=== PATIENT | female | born 1980 | race Caucasian/White ===

== ENCOUNTER 2020-04-15 16:25 | Emergency (ER) | payer MEDICAID, SELFPAY ==
--- NOTE | 2020-04-15 | XR_ITS ---
EXAMINATION: XR HAND, LEFT CLINICAL INFORMATION: Symptoms left hand, heard a pop while lifting COMPARISON: None TECHNIQUE: PA, lateral, and oblique views of the left hand. FINDINGS: There is no fracture or dislocation. No destructive process. The bony mineralization is normal. The ulnar variance is neutral. The pronator quadratus fat pad appears normal. There is no focal joint narrowing or erosive changes. IMPRESSION: Unremarkable left hand.
[2020-04-15 17:02] VITALS: BP 138/74; PULSE 77; RESP 18; TEMP 37.1; O2SAT 98; BMI 36.6
--- NOTE | 2020-04-15 18:36 | ED_ITS ---
HPI - Extremity Problem General Chief complaint: Extremity Injury, Upper Stated complaint: hand inj Source: patient Mode of arrival: ambulatory Limitations: no limitations History of Present Illness HPI Narrative: Patient presents to the ED for left hand pain. Patient states she was lifting butter and heard a pop in the palm of her hand. Patient states since then having mild pain in the palm of the hand. Patient denies any decreased range of motion of fingers. Patient denies any numbness /tingling left upper extremity. Patient denies any swelling, redness, or blue discoloration of fingers. Related Data Previous Rx's Medication Instructions Recorded naproxen 500 mg PO BID PRN #20 tab 04/15/20 Allergies Allergy/AdvReac Type Severity Reaction Status Date / Time No Known Allergies Allergy Verified 04/15/20 18:24 [No Known Allergies*] Review of Systems Review of Systems: Negative for any upper extremity swelling, redness, numbness, tingling, pus discharge, bluish discoloration of fingers, fever, chil ls, chest pain, shortness of breath, headache, dizziness, abdominal pain, back pain, or any other concerning symptoms. Patient denies any trauma to part of the body. Patient states no coughing. Patient denies any pain in other extremities. [facility] Past Medical History Medical History (Updated 04/15/20 @ 18:53 by FELECIA Nguyen) Healthy adult Social History Social History Alcohol intake: never Smoked in Last 30 Days: No Use of substances other than those prescribed or required for medical reasons: No Advance Directives: No Advance Directives Information Provided: No Physical Exam Vital Signs: Vital Signs: Vital Signs Temp Pulse Resp BP Pulse Ox 04/15/20 17:02 98.7 F 77 18 138/74 98 Body Mass Index 36.6 Const: General: cooperative, healthy appearing, comfortable and no acute distress Orientation/consciousness: oriented to person, oriented to place, oriented to time and patient oriented x3 HENMT: Head: Yes normal to inspection Eyes: General: appearance normal, both eyes and all related structures Neck: Neck: Yes normal visual inspection, Yes full ROM, Yes no lymphadenopathy and Yes no meningeal signs Chest: Chest palpation & inspection: normal inspection of the chest and normal palpation of entire chest wall Resp: Effort & Inspection: normal respiratory effort and able to speak in complete sentences Cardio: Jugular venous distension: no JVD Heart sounds: S1 normal heart sound present and S2 normal heart sound present GI: Inspection: Yes normal to inspection and Yes abdominal wall ecchymosis : General: No CVA tenderness and Yes no CVA tenderness Back/Spine/Pelvis: Back: no CVA tenderness, No CVA tenderness and No back tenderness Neuro: General: oriented to person, oriented to place, oriented to time, patient oriented x3, tone normal, no meningeal signs and CN's II-XI intact bilaterally Cranial nerves: Yes CN's II-XII intact bilaterally Extrem: Other: Left upper extremity negative for any deformities, swelling, redness, blue discoloration, pus discharge, or any open wounds. Patient has complete range of motion of fingers of left hand. Negative any tendon injury. Patient has mild tenderness in middle of the palm of left hand. Negative for any redness there or swelling. Capillary refills intact. Radial pulse intact. Left upper extremity: normal to inspection Psych: Appearance: grossly normal, well kempt and not disheveled Course Reevaluation(s) Reevaluation #1: Patient x-ray negative for any fracture. Diagnosis hand sprain. Patient informed that no improvement pain she will need MRI to rule out any tear of muscle of the palm or any tendon injury. Presently physical exam does not indicate tendon injury due to patient have complete range of motion of all fingers of left hand. Time: 22:12 MDM - Extremity (Nontraumatic) MDM Narrative Medical decision making narrative: Left hand sprain. Patient placed in Bo wrap. Discharge Plan Discharge Clinical Impression: Hand sprain Patient Disposition: Home, Self-Care Instructions: Hand Sprain (ED) Additional Instructions: return to ED for any swelling, redness, blue discoloration of fingers, redness, inability to move fingers, chest pain, shortness of breath, numbness/ tingling, or any other concerning symptoms. Please follow-up with PCP. Prescriptions: New naproxen 500 mg tablet 500 mg PO BID PRN (Reason: pain) Qty: 20 RF: 0 Stand Alone Forms: Work/School Release Interventions: ED Discharge Assessment Last Done: 04/15/20 19:02 Discharge Date/Time: 04/15/20 19:05 Print Language: [place]
== END 2020-04-15 19:05 | disposition home or self-care (01) ==
PROVIDERS: Emergency Provider Physician Assistant
DX: S63.92XA Sprain of unspecified part of left wrist and hand, initial encounter (principal); X50.0XXA Overexertion from strenuous movement or load, initial encounter; Y93.89 Activity, other specified; Y92.010 Kitchen of single-family (private) house as the place of occurrence of the external cause; Y99.9 Unspecified external cause status
CPT/HCPCS: 73120; 99283; 99284

== ENCOUNTER 2020-09-24 12:46 | Outpatient (REF) | payer MEDICAID, SELFPAY ==
--- NOTE | ~2020-09-24 | US_ITS ---
EXAMINATION: ULTRASOUND OF THE PELVIS CLINICAL INFORMATION: Pelvic and perineal pain. COMPARISON: CT 517. TECHNIQUE: Transabdominal and transvaginal pelvic ultrasound. A transvaginal study was performed in addition to the transabdominal study which did not yield an adequate examination of the uterus and ovaries due to superimposed distended gas-filled loops of bowel. FINDINGS: The uterus is normal in size and appearance, measuring 7.9 x 3.9 x 4.3 cm longitudinally, anteroposteriorly and transversely. The endometrial stripe thickness is normal, measuring 0.3 cm in thickness. No focal myometrial mass is seen. The ovaries bilaterally are visualized and appear normal, with the right ovary measuring 2.3 x 2.1 x 1.9 cm and the left ovary measuring 2.5 x 2.5 x 1.5 cm. No adnexal mass or free fluid collection seen. US/US transvaginal IMPRESSION: Normal pelvic ultrasound..
--- NOTE | ~2020-09-24 | US_ITS ---
EXAMINATION: ULTRASOUND OF THE PELVIS CLINICAL INFORMATION: Pelvic and perineal pain. COMPARISON: CT 517. TECHNIQUE: Transabdominal and transvaginal pelvic ultrasound. A transvaginal study was performed in addition to the transabdominal study which did not yield an adequate examination of the uterus and ovaries due to superimposed distended gas-filled loops of bowel. FINDINGS: The uterus is normal in size and appearance, measuring 7.9 x 3.9 x 4.3 cm longitudinally, anteroposteriorly and transversely. The endometrial stripe thickness is normal, measuring 0.3 cm in thickness. No focal myometrial mass is seen. The ovaries bilaterally are visualized and appear normal, with the right ovary measuring 2.3 x 2.1 x 1.9 cm and the left ovary measuring 2.5 x 2.5 x 1.5 cm. No adnexal mass or free fluid collection seen. US/US pelvic complete IMPRESSION: Normal pelvic ultrasound..
== END 2020-09-24 12:47 | disposition home or self-care (01) ==
LOC: HO.US 12:46
PROVIDERS: Visit Provider Advanced Practice Midwife
DX: R10.2 Pelvic and perineal pain (principal)
CPT/HCPCS: 76830; 76856

== ENCOUNTER 2020-11-18 10:41 | Outpatient (REF) | payer MEDICAID, SELFPAY ==
--- NOTE | ~2020-11-18 | MM_ITS ---
EXAMINATION: MM SCREENING DIGITAL BREAST TOMOSYNTHESIS, BILATERAL CLINICAL INFORMATION: Screening. Asymptomatic. Age 40. No prior breast imaging. Family history breast cancer in maternal grandmother. The lifetime risk of breast cancer based on the Tyrer-Cuzick Model is 17%. COMPARISON: None (current study represents initial baseline exam). TECHNIQUE: Digital breast tomosynthesis is performed in both the craniocaudal and mediolateral oblique views along with computer-aided detection (CAD). Synthesized 2D images are generated from the tomosynthesis. FINDINGS: There are scattered areas of fibroglandular density (ACR BI-RADS breast composition Category b). There are scattered parenchymal densities without significant mass or architectural abnormality. The axilla and skin contours are unremarkable. Left breast has calcifications central and inner breast, both upper and lower quadrant on MLO view. Right breast shows less calcifications, loosely grouped mid upper inner quadrant. As this represents initial baseline exam, patient will be recalled for additional magnification views to fully characterize. MM/MM tomosynthesis screening BI IMPRESSION: 1. Bilateral calcifications, greater on left. 2. No significant mass or architectural abnormality. ASSESSMENT: BI-RADS 0: Incomplete - Need Additional Imaging Evaluation RECOMMENDATION: 1. Additional views of the breasts (bilateral magnification CC and bilateral magnification ML). 2. Radiology department staff will contact the patient for additional imaging. This patient's information was entered into a reminder system with a target due date for their next mammogram.
== END 2020-11-18 10:42 | disposition home or self-care (01) ==
LOC: HO.MAMMO 10:41
PROVIDERS: PCP Family Medicine; Visit Provider Family Medicine
DX: Z12.31 Encounter for screening mammogram for malignant neoplasm of breast (principal)
CPT/HCPCS: 77063; 77067

== ENCOUNTER 2020-12-02 12:14 | Outpatient (REF) | payer MEDICAID, SELFPAY ==
--- NOTE | ~2020-12-02 | MM_ITS ---
EXAMINATION: MM DIAGNOSTIC DIGITAL MAMMOGRAPHY, BILATERAL CLINICAL INFORMATION: Recall from baseline screening for bilateral calcifications, greater on the left. TC score 17%. COMPARISON: Mammography: 11/18/2020 TECHNIQUE: Digital mammography is performed in the following views: Magnification right CC and magnification right ML. Magnification left CC x2 and magnification left ML x2. FINDINGS: There are scattered areas of fibroglandular density (ACR BI-RADS breast composition Category b). Magnification views right breast demonstrate a few scattered punctate calcifications upper inner quadrant. There is no focal grouping or ductal distribution or pleomorphic types. These are considered benign. Magnification views left breast demonstrate greater number of calcifications, some in similar appearing small groups about the anterior 12:00, anterior central, and anterior lower quadrant. These are considered probably benign and will be followed again with diagnostic left mammography in 6 months. Results are discussed with the patient at time of visit. MM/MM added views BI IMPRESSION: Left: Scattered probable benign small groups of calcifications anterior breasts upper, central, and lower quadrant. Right: Scattered benign regional calcifications upper inner quadrant. ASSESSMENT: BI-RADS 3: Probably Benign RECOMMENDATION: Diagnostic left mammography in 6 months. This patient's information was entered into a reminder system with a target due date for their next mammogram.
== END 2020-12-02 12:15 | disposition home or self-care (01) ==
LOC: HO.MAMMO 12:14
PROVIDERS: Visit Provider Family Medicine
DX: R92.1 Mammographic calcification found on diagnostic imaging of breast (principal)
CPT/HCPCS: 77066

== ENCOUNTER 2021-06-03 13:24 | Outpatient (REF) | payer MEDICAID, SELFPAY ==
--- NOTE | ~2021-06-03 | MM_ITS ---
EXAMINATION: MM DIAGNOSTIC DIGITAL BREAST TOMOSYNTHESIS, LEFT CLINICAL INFORMATION: Six-month follow up left breast calcifications. The lifetime risk of breast cancer based on the Tyrer-Cuzick Model is 17.2%. COMPARISON: Mammography: 12/02/2020 and 11/18/2020. TECHNIQUE: Digital breast tomosynthesis is performed in both the craniocaudal and mediolateral oblique views along with computer-aided detection (CAD). Synthesized 2D images are generated from the tomosynthesis. Spot magnification views in craniocaudal and 90-degree mediolateral views also performed. FINDINGS: There are scattered areas of fibroglandular density (ACR BI-RADS breast composition Category b). There is essentially no change in appearance of the grouped and scattered calcifications of the left breast. Some of the calcifications are noted to change in configuration from craniocaudal to 90-degree mediolateral views with the appearance of milk of calcium within microcysts. No new abnormal dominant mass is appreciated. Results are provided to the patient at time of visit by the technologist. MM/MM tomosynthesis diagnostic LT IMPRESSION: There are no significant changes from prior study. ASSESSMENT: BI-RADS 3: Probably Benign. RECOMMENDATION: Diagnostic mammography in 6 months, bilateral. This patient's information was entered into a reminder system with a target due date for their next mammogram.
== END 2021-06-03 13:25 | disposition home or self-care (01) ==
LOC: HO.MAMMO 13:24
PROVIDERS: Visit Provider Family Medicine
DX: R92.1 Mammographic calcification found on diagnostic imaging of breast (principal)
CPT/HCPCS: 77061; 77065

== ENCOUNTER 2021-07-14 08:35 | Outpatient (REF) | payer MEDICAID, SELFPAY ==
--- NOTE | ~2021-07-14 | US_ITS ---
EXAMINATION: US RETROPERITONEAL LIMITED (RENAL ONLY) CLINICAL INFORMATION: History of kidney stones. Right-sided low back pain. COMPARISON: CT abdomen and pelvis 01/29/2017. TECHNIQUE: Real-time imaging of the kidneys. FINDINGS: RIGHT KIDNEY: 10.0 x 4.2 x 5.7 cm (SAG x AP x TRV). The kidney is normal in size, contour, and echogenicity. Renal cortical thickness is normal. No calculi or focal parenchymal lesions. No hydronephrosis. There are innumerable echogenic foci, likely vascular calcifications. LEFT KIDNEY: 10.2 x 5.0 x 4.9 cm (SAG x AP x TRV). The kidney is normal in size, contour, and echogenicity. Renal cortical thickness is normal. No calculi or focal parenchymal lesions. No hydronephrosis. There are multiple echogenic pyramids, likely microcalcifications raising a possibility of medullary sponge kidney. No caliectasis seen. US/US renal BI IMPRESSION: Bilateral multiple echogenic foci, likely small microcalcifications or vascular calcifications. Question medullary sponge kidney. No caliectasis or hydronephrosis seen.
== END 2021-07-14 08:36 | disposition home or self-care (01) ==
LOC: HO.US 08:35
PROVIDERS: PCP Nurse Practitioner Family; Visit Provider Nurse Practitioner Family
DX: N20.0 Calculus of kidney (principal)
CPT/HCPCS: 76775

== ENCOUNTER 2021-07-29 09:48 | Outpatient (REF) | payer MEDICAID, SELFPAY ==
--- NOTE | ~2021-07-29 | US_ITS ---
EXAMINATION: US PELVIS CLINICAL INFORMATION: Ovarian cyst COMPARISON: Previous pelvic ultrasound August 2020 TECHNIQUE: Ultrasound of the pelvis is performed using both transabdominal and transvaginal transducers along with Doppler. Transvaginal imaging is performed due to inadequate visualization transabdominally. FINDINGS: The uterus is anteverted and measures 8.4 x 3.6 x 4.2 cm in dimension. No focal uterine lesion is seen. Endometrial thickness is normal measuring 1.3 cm. There are nabothian cysts in the cervix. The right ovary is normal-appearing and measures 2.1 x 1.4 x 1.6 cm. The left ovary is normal-appearing and measures 3.6 x 1.6 x 2.9 cm. There is no fluid in the pelvis. US/US pelvic and transvaginal IMPRESSION: Normal pelvic ultrasound.
== END 2021-07-29 09:49 | disposition home or self-care (01) ==
LOC: HO.US 09:48
PROVIDERS: PCP Nurse Practitioner Family; Visit Provider Nurse Practitioner Family
DX: L68.0 Hirsutism (principal); N83.209 Unspecified ovarian cyst, unspecified side
CPT/HCPCS: 76830; 76856

== ENCOUNTER 2021-10-01 01:05 | Emergency (ER) | payer MEDICAID, SELFPAY ==
--- NOTE | ~2021-10-01 | CT_ITS ---
EXAMINATION: CT ABDOMEN AND PELVIS WITH CONTRAST CLINICAL INFORMATION: Right lower quadrant pain COMPARISON: 01/29/2017 TECHNIQUE: Multidetector volumetric images were obtained from the superior aspect of the liver through the pubic symphysis following administration 85 mL of Omnipaque 350 intravenous contrast. Sagittal and coronal reformatted images were obtained on the technologist's workstation. Oral contrast: No This CT examination was performed using dose optimization techniques as appropriate, variously including the following: *Automated exposure control *Adjustment of mA and/or kV according to patient size (this includes techniques or standardized protocols for targeted exams where dose is matched to indication/reason for exam; i.e. extremities or head) *Use of iterative reconstruction technique DLP: 693 mGy-cm FINDINGS: LUNG BASES: The visualized lung bases are unremarkable. LIVER, GALLBLADDER, AND BILIARY TREE: Liver is mildly enlarged and demonstrates hypoattenuation suspicious for steatosis. No intrahepatic biliary ductal dilatation. Redemonstrated peripheral calcification in the right lobe. Patient is status post cholecystectomy. PANCREAS: Unremarkable. SPLEEN: Unremarkable. ADRENAL GLANDS: Unremarkable. KIDNEYS AND URETERS: Bilateral nephrograms are symmetric. No hydronephrosis or obstructing calculus. A 4 mm calculus is noted in the lower left kidney. BLADDER: Minimally distended and grossly unremarkable. GASTROINTESTINAL TRACT: Assessment for wall thickening in some segments of the colon is limited due to luminal collapse, though no significant pericolonic stranding is seen to strongly suggest a colitis. No evidence of bowel obstruction. The appendix is unremarkable. No free fluid or free air is seen. ABDOMINAL WALL: No significant hernia is appreciated. LYMPH NODES: Normal. VASCULAR: Unremarkable. PELVIC VISCERA: Unremarkable. OSSEOUS STRUCTURES: Unremarkable. CT/CT abdomen pelvis w con IMPRESSION: No acute findings identified in the abdomen/pelvis. Mild hepatomegaly with steatosis. Fleischner guidelines were followed.
[2021-10-01 01:07] VITALS: BP 136/84; PULSE 85; RESP 16; TEMP 36.3; O2SAT 99; BMI 38.0
--- NOTE | 2021-10-01 01:21 | ED_ITS ---
HPI - Abdominal Pain General Chief Complaint: Abdominal Pain Stated Complaint: lower R side stomach/back pain Time Seen by Provider: 10/01/21 01:21 Source: patient Mode of arrival: ambulatory Limitations: no limitations History of Present Illness MD elicited complaint: abdominal pain Pertinent past history: kidney stones Onset (ago): hour(s) (11pm yesterday ) Pain Consistency: constant Location: RLQ Severity: severe Quality: stabbing Radiation: back Migration to: no migration Exacerbating factors: movement Relieving factors: nothing Associated symptoms: nausea Related Data Home Medications Medication Instructions Recorded Confirmed buspirone 5 mg tablet 1 tab PO BID 10/01/21 10/01/21 hydroxyzine HCl 10 mg tablet 1 - 2 tab PO BID PRN 10/01/21 10/01/21 omeprazole 40 mg capsule,delayed 1 cap PO BEDTIME 10/01/21 10/01/21 release spironolactone 100 mg tablet 1 tab PO DAILY 10/01/21 10/01/21 Previous Rx's Medication Instructions Recorded naproxen 500 mg tablet 500 mg PO BID PRN #20 tab 04/15/20 amoxicillin 875 mg-potassium 1 tab PO BID #14 tab 10/01/21 clavulanate 125 mg tablet ondansetron 4 mg disintegrating 4 mg PO Q8H PRN #20 tab 10/01/21 tablet Allergies Allergy/AdvReac Type Severity Reaction Status Date / Time No Known Allergies Allergy Verified 04/15/20 18:24 [No Known Allergies*] Review of Systems Review of Systems Constitutional : No Weight loss, No Fever, No Chills ENT/Mouth : No sore throat, No Rhinorrhea Eyes: No Swelling, No Redness Cardiovascular : No Chest Pain, No SOB, NoEdema Respiratory : No Cough, No Sputum, No Wheezing Gastrointestinal : Positive Nausea, no Vomiting, no Diarrhea, positive abdominal Pain, No Hematochezia, No Melena Genitourinary : No Dysuria, No Urinary Frequency, No Hematuria, No Urgency Musculoskeletal : No joint pain, No Myalgias, No Joint Swelling Skin : No Skin Lesions, No rash Neuro : No Weakness, No Numbness, No Dizziness, No Headache Psych : No Anxiety/Panic, No Depression Heme/Lymph: No Bruising, No Lymphadenopathy Endocrine : No Polyuria, No Polydipsia All other systems reviewed and are negative. [facility] Past Medical History Attestation statement: The following information was validated with the patient. Medical History (Updated 10/01/21 @ 02:53 by Aimee Rodriguez DO) Healthy adult Surgical History (Updated 10/01/21 @ 01:49 by Aimee Rodriguez DO) S/P cholecystectomy Social History Social History Alcohol intake: never Advance Directives: No Advance Directives Information Provided: No Patient : No Physical Exam ED Vital Signs: Vital Signs - 24 hr 10/01/21 01:07 10/01/21 01:32 10/01/21 02:53 Temperature 97.4 F Pulse Rate 85 76 71 Respiratory Rate 16 16 16 Blood Pressure 136/84 117/62 Pulse Oximetry 99 98 99 BMI result Body Mass Index 38.0 Appearance: Alert. Oriented X3. No acute distress. Eyes: Pupils equal, round and reactive to light. ENT: Pharynx normal. Neck: Normal inspection. Neck supple. CVS: Normal heart rate and rhythm. Pulses normal. Respiratory: No respiratory distress. Breath sounds normal. Abdomen: Soft and moderate ttp in RLQ no rebound Skin: Skin warm and dry. Normal skin color. Normal skin turgor. Extremities: No lower extremity edema. No calf ttp Neuro: Oriented X 3. No motor deficit. No sensory deficit. Course Course Course Narrative: CT scan negative - WBC count 16, has RLQ pain will repeat WBC count in a couple of hours and reassess. repeat WBC lower, VS stable, abdomen soft and benign possibly early appendicitis clinically discussed starting on oral antibiotics in case this is early appendicitis, patient agrees will return for any concerns MDM - Abdominal Pain MDM Narrative Medical decision making narrative: 41 yo female no sig PMH hx of cholecystectomy here with c/o RLQ pain and some nausea at this time will need labs, UA, IVF, IV toradol. CT scan to evaluate for renal colic/appendicitis. Dispo per results and findings. Differential Diagnosis Differential diagnosis: Likely abdominal pain, acute appendicitis, calculus of kidney, ovarian cyst and renal colic Lab Data Result diagrams: 10/01/21 05:07 10/01/21 01:17 Labs: Lab Results 10/01/21 10/01/21 10/01/21 Range/Units 01:17 01:17 01:17 WBC 16.3 H (4.8-10.8) X10*3/uL RBC 4.49 (4.20-5.50) X10*6/uL Hgb 12.9 (12.0-16.0) g/dl Hct 40.2 (37.0-47.0) % MCV 89.5 (80.0-98.0) fL MCH 28.7 (27.0-33.0) pg MCHC 32.1 (31.0-35.0) g/dl RDW 13.6 (11.0-16.0) % Plt Count 299 (160-400) X10*3/uL MPV 9.4 (9.4-12.3) fL Immature Gran % (Auto) 0.6 H (0.0-0.4) % Neut % (Auto) 74.3 H (45-73) % Lymph % (Auto) 18.2 L (20-40) % [place] % (Auto) 5.7 (2-11) % Eos % (Auto) 0.9 (0-4) % Baso % (Auto) 0.3 (0-2) % Lymph # (Auto) 3.0 (1.2-4.9) X10*3/uL [place] # (Auto) 0.9 (0.1-1.2) X10*3/uL Eos # (Auto) 0.1 (0.0-0.4) X10*3/uL Baso # (Auto) 0.1 (0.0-0.2) X10*3/uL Abs Immat Gran (auto) 0.10 H (0.00-0.03) X10*3/uL Absolute Neuts (auto) 12.1 H (2.0-8.3) x10*3/uL Absolute Nucleated RBC 0.000 (0.0-0.012) X10*3/uL Nucleated RBC % (auto) 0.0 (0.0-0.2) /100WBC Sodium 137 (135-145) mmol/L Potassium 3.8 (3.3-5.1) mmol/L Chloride 101 (96-108) mmol/L Carbon Dioxide 27 (22-29) mmol/L Anion Gap 13 (12-20) BUN 9 (9-16) mg/dL Creatinine 0.77 (0.5-1.4) mg/dL Estim Creat Clear Calc 101.8 Estimated GFR > 60 Random Glucose 126 H (60-115) mg/dL Calcium 9.1 (8.4-10.2) mg/dL Total Bilirubin 0.3 (0.0-1.0) mg/dL Direct Bilirubin < 0.2 (0.0-0.5) mg/dL AST 17 (5-31) U/L ALT 21 (0-31) U/L Alkaline Phosphatase 96 (39-117) U/L Total Protein 7.6 (6.5-8.0) g/dL Albumin 4.3 (3.5-5.0) g/dL Lipase 79 H (8-78) U/L Urine Color YELLOW Urine Appearance HAZY Urine pH 6.0 (5.0-8.0) Ur Specific [place] >= 1.030 H (1.005-1.025) Urine Protein TRACE (NEG-TRACE) MG/DL Urine Glucose (UA) NEG (NEG) MG/DL Urine Ketones 5 (NEG) MG/DL Urine Blood 1+ H (NEG) Urine Nitrite NEG (NEG) Ur Leukocyte Esterase NEG (NEG) Urine RBC 0-2 (0) /HPF Urine WBC 1-4 (0-4) /HPF Ur Squamous Epith Cells 3+ /LPF Urine Bacteria 2+ /LPF Urine Mucus 3+ /LPF Urine Test (NEGATIVE) COVID-19 (ENEDELIA) (Negative) COVID-19 Clin Com 10/01/21 10/01/21 10/01/21 Range/Units 01:17 01:50 05:07 WBC 13.3 H (4.8-10.8) X10*3/uL RBC 4.05 L (4.20-5.50) X10*6/uL Hgb 11.7 L (12.0-16.0) g/dl Hct 36.0 L (37.0-47.0) % MCV 88.9 (80.0-98.0) fL MCH 28.9 (27.0-33.0) pg MCHC 32.5 (31.0-35.0) g/dl RDW 13.6 (11.0-16.0) % Plt Count 256 (160-400) X10*3/uL MPV 9.5 (9.4-12.3) fL Immature Gran % (Auto) 0.5 H (0.0-0.4) % Neut % (Auto) 72.8 (45-73) % Lymph % (Auto) 20.1 (20-40) % [place] % (Auto) 5.4 (2-11) % Eos % (Auto) 0.9 (0-4) % Baso % (Auto) 0.3 (0-2) % Lymph # (Auto) 2.7 (1.2-4.9) X10*3/uL [place] # (Auto) 0.7 (0.1-1.2) X10*3/uL Eos # (Auto) 0.1 (0.0-0.4) X10*3/uL Baso # (Auto) 0.0 (0.0-0.2) X10*3/uL Abs Immat Gran (auto) 0.06 H (0.00-0.03) X10*3/uL Absolute Neuts (auto) 9.7 H (2.0-8.3) x10*3/uL Absolute Nucleated RBC 0.000 (0.0-0.012) X10*3/uL Nucleated RBC % (auto) 0.0 (0.0-0.2) /100WBC Sodium (135-145) mmol/L Potassium (3.3-5.1) mmol/L Chloride (96-108) mmol/L Carbon Dioxide (22-29) mmol/L Anion Gap (12-20) BUN (9-16) mg/dL Creatinine (0.5-1.4) mg/dL Estim Creat Clear Calc Estimated GFR Random Glucose (60-115) mg/dL Calcium (8.4-10.2) mg/dL Total Bilirubin (0.0-1.0) mg/dL Direct Bilirubin (0.0-0.5) mg/dL AST (5-31) U/L ALT (0-31) U/L Alkaline Phosphatase (39-117) U/L Total Protein (6.5-8.0) g/dL Albumin (3.5-5.0) g/dL Lipase (8-78) U/L Urine Color Urine Appearance Urine pH (5.0-8.0) Ur Specific [place] (1.005-1.025) Urine Protein (NEG-TRACE) MG/DL Urine Glucose (UA) (NEG) MG/DL Urine Ketones (NEG) MG/DL Urine Blood (NEG) Urine Nitrite (NEG) Ur Leukocyte Esterase (NEG) Urine RBC (0) /HPF Urine WBC (0-4) /HPF Ur Squamous Epith Cells /LPF Urine Bacteria /LPF Urine Mucus /LPF Urine Test NEGATIVE (NEGATIVE) COVID-19 (ENEDELIA) Negative (Negative) COVID-19 Clin Com See Note Discharge Plan Discharge Clinical Impression: Abdominal pain Qualifiers: Abdominal location: right lower quadrant Qualified Code(s): R10.31 - Right lower quadrant pain Leukocytosis Qualifiers: Leukocytosis type: unspecified Qualified Code(s): D72.829 - Elevated white blood cell count, unspecified Patient Disposition: Home, Self-Care Instructions: Abdominal Pain (ED) Additional Instructions: return to ED for any worsening symptoms or concerns repeat blood test show WBC count is going down your CT scan shows no acute inflammation of your appendix but clinically you have pain there and an elevation in your cells that fight infection in case this is early appendicitis will start on antibiotics please come back if you have fev ers, vomiting, worsening pain Prescriptions: New ondansetron 4 mg tablet,disintegrating 4 mg PO Q8H PRN (Reason: nausea and vomiting) Qty: 20 0RF amoxicillin-pot clavulanate 875-125 mg tablet 1 tab PO BID Qty: 14 0RF No Action naproxen 500 mg tablet 500 mg PO BID PRN (Reason: pain) Qty: 20 0RF buspirone 5 mg tablet 1 tab PO BID 0RF spironolactone 100 mg tablet 1 tab PO DAILY 0RF omeprazole 40 mg capsule,delayed release(DR/EC) 1 cap PO BEDTIME 0RF hydroxyzine HCl 10 mg tablet 1 - 2 tab PO BID PRN (Reason: anxiety) 0RF Stand Alone Forms: Work/School Release
[2021-10-01 01:23] LABS: Basophils Absolute Auto 0.1 X10*3/uL (0.0-0.2); Basophils Percent Auto 0.3 % (0-2); Eosinophils Absolute Auto 0.1 X10*3/uL (0.0-0.4); Eosinophils Percent Auto 0.9 % (0-4); Hematocrit 40.2 % (37.0-47.0); Hemoglobin 12.9 g/dl (12.0-16.0); Imm Gran Pct Auto 0.6 % (0.0-0.4); Lymphocytes Percent Auto 18.2 % (20-40); MANUAL DIFF FLAG NO; Mean Corpuscular HGB Conc 32.1 g/dl (31.0-35.0); Mean Corpuscular Hemoglobin 28.7 pg (27.0-33.0); Mean Corpuscular Volume 89.5 fL (80.0-98.0); Mean Platelet Volume 9.4 fL (9.4-12.3); Monocytes Absolute Auto 0.9 X10*3/uL (0.1-1.2); Monocytes Percent Auto 5.7 % (2-11); Neutrophils Absolute Auto 12.1 x10*3/uL (2.0-8.3); Neutrophils Percent Auto 74.3 % (45-73); Platelet Count 299 X10*3/uL (160-400); Red Blood Count 4.49 X10*6/uL (4.20-5.50); Red Cell Distribution Width 13.6 % (11.0-16.0); White Blood Count 16.3 X10*3/uL (4.8-10.8)
[2021-10-01 01:25] LABS: Appearance Urine HAZY; Color Urine YELLOW; Glucose Urine UA NEG (NEG); Leukocyte Esterase Urine NEG (NEG); Nitrite Urine NEG (NEG); Specific Gravity - Urine >= 1.030 (1.005-1.025); UACC Culture Trigger NO; Urine Blood 1+ (NEG); Urine Ketones 5 MG/DL (NEG); Urine Protein TRACE MG/DL (NEG-TRACE)
[2021-10-01 01:26] LABS: UPreg QC Valid YES; Urine Pregnancy NEGATIVE (NEGATIVE)
[2021-10-01 01:31] LABS: Bacteria Urine 2+ /LPF; Mucus Urine 3+ /LPF; RBC Urine 0-2 /HPF (0); Squamous Epithelial Cell Urine 3+ /LPF
[2021-10-01 01:32] VITALS: PULSE 76; RESP 16; O2SAT 98
[2021-10-01 01:54] LABS: Alanine Aminotransferase 21 U/L (0-31); Albumin Level 4.3 g/dL (3.5-5.0); Alkaline Phosphatase 96 U/L (39-117); Anion Gap 13 (12-20); Aspartate Amino Transferase 17 U/L (5-31); Bilirubin Direct < 0.2 mg/dL (0.0-0.5); Bilirubin Total 0.3 mg/dL (0.0-1.0); Blood Urea Nitrogen 9 mg/dL (9-16); Calcium 9.1 mg/dL (8.4-10.2); Carbon Dioxide 27 mmol/L (22-29); Chloride 101 mmol/L (96-108); Creatinine Clr Calc Pharmacy 101.8; Estimated Glomerular Filt Rate > 60; Glucose Random 126 mg/dL (60-115); Lipase 79 U/L (8-78); Potassium 3.8 mmol/L (3.3-5.1); Sodium 137 mmol/L (135-145); Total Protein 7.6 g/dL (6.5-8.0)
[2021-10-01] MEDS: iohexoL 350 MG/ML 100 ML INFUS..BTL 85 ML IV (02:10)
[2021-10-01 02:14] LABS: COVID-19 Test Negative (Negative); IDNOW Serial# 16C4AD1C
[2021-10-01] MEDS: ondansetron HCL 4 MG/2 ML VIAL IVPUSH (02:22)
[2021-10-01] MEDS: Ketorolac Tromethamine 30 MG/ML VIAL IVPUSH (02:22)
[2021-10-01] MEDS: 0.9 % Sodium Chloride 1,000 ML 999 ML IV (02:22)
[2021-10-01 02:53] VITALS: BP 117/62; PULSE 71; RESP 16; O2SAT 99
[2021-10-01 05:11] LABS: MANUAL DIFF FLAG NO
[2021-10-01 05:12] LABS: Basophils Percent Auto 0.3 % (0-2); Eosinophils Absolute Auto 0.1 X10*3/uL (0.0-0.4); Eosinophils Percent Auto 0.9 % (0-4); Hemoglobin 11.7 g/dl (12.0-16.0); Imm Gran Abs Auto 0.06 X10*3/uL (0.00-0.03); Imm Gran Pct Auto 0.5 % (0.0-0.4); Lymphocytes Absolute Auto 2.7 X10*3/uL (1.2-4.9); Lymphocytes Percent Auto 20.1 % (20-40); Mean Corpuscular HGB Conc 32.5 g/dl (31.0-35.0); Mean Corpuscular Hemoglobin 28.9 pg (27.0-33.0); Mean Corpuscular Volume 88.9 fL (80.0-98.0); Mean Platelet Volume 9.5 fL (9.4-12.3); Monocytes Absolute Auto 0.7 X10*3/uL (0.1-1.2); Monocytes Percent Auto 5.4 % (2-11); Neutrophils Absolute Auto 9.7 x10*3/uL (2.0-8.3); Neutrophils Percent Auto 72.8 % (45-73); Platelet Count 256 X10*3/uL (160-400); Red Blood Count 4.05 X10*6/uL (4.20-5.50); Red Cell Distribution Width 13.6 % (11.0-16.0); White Blood Count 13.3 X10*3/uL (4.8-10.8)
== END 2021-10-01 05:52 | disposition home or self-care (01) ==
PROVIDERS: Emergency Provider Emergency Medicine; PCP Nurse Practitioner Family
DX: R10.31 Right lower quadrant pain (principal); D72.829 Elevated white blood cell count, unspecified; Z20.822 Contact with and (suspected) exposure to COVID-19
CPT/HCPCS: 36415; 74177; 80048; 80076; 81001; 81025; 83690; 85025; 87635; 96361; 96374; 96375; 99284; 99285; J1885; J2405; Q9967

== ENCOUNTER 2021-12-02 13:34 | Outpatient (REF) | payer MEDICAID, SELFPAY ==
--- NOTE | ~2021-12-02 | MM_ITS ---
EXAMINATION: MM DIAGNOSTIC DIGITAL BREAST TOMOSYNTHESIS, BILATERAL CLINICAL INFORMATION: Six-month follow-up bilateral calcifications. The lifetime risk of breast cancer based on the Tyrer-Cuzick Model is 16%. COMPARISON: Mammography: June 03, 2021 and studies dating back to November 18, 2020 TECHNIQUE: Digital breast tomosynthesis is performed in both the craniocaudal and mediolateral oblique views along with computer-aided detection (CAD). Synthesized 2D images are generated from the tomosynthesis. Additional bilateral spot magnification views in craniocaudal and 90 degree mediolateral views performed. FINDINGS: The breasts are heterogeneously dense, which may obscure small masses (ACR BI-RADS breast composition Category c). There are no new significant masses, abnormal calcifications, or other abnormalities. There is stability of bilateral groupings of calcifications. Results are provided to the patient at time of visit by the technologist. MM/MM tomosynthesis diagnostic BI IMPRESSION: There are no significant changes from prior study. ASSESSMENT: BI-RADS 3: Probably Benign RECOMMENDATION: Diagnostic mammography at time of next annual exam, due in 12 months. This patient's information was entered into a reminder system with a target due date for their next mammogram.
== END 2021-12-02 13:35 | disposition home or self-care (01) ==
LOC: HO.MAMMO 13:34
PROVIDERS: PCP Nurse Practitioner Family; Visit Provider Family Medicine
DX: R92.1 Mammographic calcification found on diagnostic imaging of breast (principal)
CPT/HCPCS: 77062; 77066

== ENCOUNTER 2023-06-16 13:46 | Outpatient (REF) | payer MEDICAID, SELFPAY ==
--- NOTE | ~2023-06-16 | MM_ITS ---
EXAMINATION: MM DIAGNOSTIC DIGITAL BREAST TOMOSYNTHESIS, BILATERAL CLINICAL INFORMATION: 6 month Follow-up bilateral breast calcifications (followed since 12/02/2020), and complaining of global left breast pain. 43-year-old female. COMPARISON: Mammography: 12/02/2021, 06/03/2021, 12/02/2020, 11/18/2020. TECHNIQUE: Digital breast tomosynthesis is performed in both the craniocaudal and mediolateral oblique views along with computer-aided detection (CAD). Synthesized 2D images are generated from the tomosynthesis. In addition to standard views, spot 2-D magnification views of both breasts in the CC and ML projections were performed. FINDINGS: The breasts are heterogeneously dense, which may obscure small masses (ACR BI-RADS breast composition Category c). There are numerous bilateral loosely grouped calcifications in both breasts, the majority of which layer on the 90 degrees mediolateral view, diagnostic for milk of calcium. These appear stable from 12/02/2020, and are benign. No aggressive changes. There are no suspicious masses, suspicious grouped calcifications, or areas of architectural distortion in either breast. The somewhat nodular parenchymal pattern is stable from prior exams. MM/MM tomosynthesis diagnostic BI IMPRESSION: There are no significant changes from prior study. Benign findings. No findings suspicious for malignancy. Recommend the patient resume routine annual screening. ASSESSMENT: BI-RADS BI-RADS 2 - Benign Findings RECOMMENDATION: 1 year F/U Results were provided to the patient at time of visit by the technologist. This patient's information was entered into a reminder system with a target due date for their next mammogram.
== END 2023-06-16 13:47 | disposition home or self-care (01) ==
LOC: HO.MAMMO 13:46
PROVIDERS: PCP Registered Nurse; Visit Provider Registered Nurse
DX: R92.8 Other abnormal and inconclusive findings on diagnostic imaging of breast (principal)
CPT/HCPCS: 77062; 77066

== ENCOUNTER → 2023-06-16 14:00 | Outpatient (BNV) | payer MEDICAID, SELFPAY | PROVIDERS: PCP Registered Nurse; Visit Provider Radiology Diagnostic Radiology | DX: R92.0 Mammographic microcalcification found on diagnostic imaging of breast (principal) | CPT/HCPCS: 77062; 77066 ==

== ENCOUNTER 2023-08-04 10:43 | Outpatient (REF) | payer MEDICAID, SELFPAY ==
[2023-08-04 12:20] LABS: MANUAL DIFF FLAG NO
[2023-08-04 13:32] LABS: Basophils Percent Auto 0.5 % (0-2); Eosinophils Absolute Auto 0.3 X10*3/uL (0.0-0.4); Eosinophils Percent Auto 4.7 % (0-4); Hematocrit 39.4 % (37.0-47.0); Hemoglobin 12.8 g/dl (12.0-16.0); Imm Gran Abs Auto 0.03 X10*3/uL (0.00-0.03); Imm Gran Pct Auto 0.5 % (0.0-0.4); Lymphocytes Absolute Auto 1.7 X10*3/uL (1.2-4.9); Lymphocytes Percent Auto 27.5 % (20-40); Mean Corpuscular HGB Conc 32.5 g/dl (31.0-35.0); Mean Corpuscular Hemoglobin 28.4 pg (27.0-33.0); Mean Corpuscular Volume 87.6 fL (80.0-98.0); Mean Platelet Volume 9.8 fL (9.4-12.3); Monocytes Absolute Auto 0.7 X10*3/uL (0.1-1.2); Monocytes Percent Auto 11.2 % (2-11); Neutrophils Absolute Auto 3.4 x10*3/uL (2.0-8.3); Neutrophils Percent Auto 55.6 % (45-73); Platelet Count 268 X10*3/uL (160-400); Red Cell Distribution Width 13.6 % (11.0-16.0); White Blood Count 6.1 X10*3/uL (4.8-10.8)
[2023-08-04 14:02] LABS: Alanine Aminotransferase 36 U/L (0-31); Albumin Level 4.1 g/dL (3.5-5.0); Alkaline Phosphatase 80 U/L (39-117); Anion Gap 11 (12-20); Aspartate Amino Transferase 25 U/L (5-31); Bilirubin Total 0.3 mg/dL (0.0-1.0); Blood Urea Nitrogen 8 mg/dL (9-16); Calcium 8.9 mg/dL (8.4-10.2); Carbon Dioxide 28 mmol/L (22-29); Chloride 103 mmol/L (96-108); Estimated Glomerular Filt Rate > 60; Glucose Random 87 mg/dL (60-115); Potassium 3.6 mmol/L (3.3-5.1); Sodium 138 mmol/L (135-145); Total Protein 7.6 g/dL (6.5-8.0)
== END 2023-08-04 10:44 | disposition home or self-care (01) ==
LOC: HO.LAB 10:43
PROVIDERS: PCP Registered Nurse; Referring Provider Registered Nurse; Visit Provider Nurse Practitioner
DX: R13.10 Dysphagia, unspecified (principal); R10.10 Upper abdominal pain, unspecified; K91.5 Postcholecystectomy syndrome
CPT/HCPCS: 36415; 80053; 84443; 85025; 99212

== ENCOUNTER 2023-08-04 10:43 | Outpatient (AMB) | payer MEDICAID, SELFPAY ==
--- NOTE | 2023-08-04 11:11 | MHC.OFFVIS ---
Intake Vital Signs 08/04/23 11:12 Height 5 ft 2 in Weight 207 lb 10.807 oz BMI 38.0 BP 127/76 Blood Pressure Location Lt brachial Position Sitting Pulse 70 Intake Visit Reasons: Dysphagia Intake Note: Nilam presents to in office visit today as a new patient for dysphagia. CC: Patient c/o really bad acid reflux she states that she wakes up from her sleep chocking d/t acid reflux that also comes out of her nose. She reports symptoms for more than a year. She states that she chokes with foods and they get stuck in her throat. She also has noticed that when she talks a lot her throat feels dry and she has to cough. Also, PT c/o sharp stabbing epigastric pain sometimes, and some constipation. 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 She is referred by [facility]. PMX LAURA Obesity Hypertension High cholesterol Migraines Bipolar disorder Impaired fasting glucose Nephrolithiasis Female stress incontinence/cystocele * SURGICAL HISTORY Cholecystectomy Bilateral tubal ligation-Hawkins Bladder sling * ALLERGIES: NKDA * imo.im LABS: None in our system since 2021 TODAY'S VISIT The problems developed over the past year. She says that certain foods that she eats seems to get stuck at the sternal notch. She has had to give self Heimlich at times. No trouble with liquids. She has had 2 episodes of sharp, twisting pain in the low gastric area just above the umbilicus that lasted about 60 seconds. No other abd pain. She also has severe GERD, it especially wakes her up when sleeping. She will have acid brash that comes straight out of my nose. She eats a LOT of spicy foods, but recently stopped this. There were no new medicines at the beginning of this, she was recently given topamax and phentermine for wt loss but has not started taking this. No diet changes. No illness. She has a maternal uncle for GERD. She has gained significant wt recently her BMI going from 36 to 38. She feels that her neck will choke her if she raised her arms above her head, has 2 sisters with thyroid disease. She is s/p cholecystectomy. she used to have post prandial diarrhea with greasy foods, but for the past 3 weeks she has been feeling constipated. She will have soft sticky stools with incomplete evacuation for 3-4 days, then a large BM with watery stools. We discuss raising the HOB on blocks for now. Start qd cholestyramine and continue pantoprazole. 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 This is likely causing bile gastritis and bile GERD. ROV 3 weeks and after EGD/ barium swallow (on if possible). [facility] Medical History (Updated 08/04/23 @ 11:45 by SASHA Mace) Eroded bladder suspension mesh Healthy adult Surgical History History of bilateral tubal ligation S/P cholecystectomy Family History (Updated 08/04/23 @ 11:25 by GEMMA Hernandez) Maternal Grandmother Breast cancer Paternal Aunt Breast cancer Social History (Updated 08/04/23 @ 11:26 by GEMMA Hernandez) Alcohol intake: never Patient Tobacco Use Status: Never used Tobacco Review of Systems Const Denies fatigue, Denies fever(s), Denies night sweats, Denies poor appetite, Reports weight gain and Denies weight loss ENT Reports Normal hearing present, Denies dental pain, Denies dysphagia, Denies hearing loss, Denies mouth pain, Denies odynophagia, Denies throat swelling, Denies tongue swelling and Reports other (Dentition adequate) Card Reports no additional complaints Resp Reports no additional complaints GI Details: Denies abdominal pain, Reports belching, Denies melena, Reports bloating, Denies hematochezia, Denies constipation, Denies GI cramping, Denies dysphagia, Denies excessive flatus, Denies early satiety, Reports heartburn, Denies diarrhea, Reports loose stools, Denies nausea, Denies odynophagia, Denies vomiting and Denies hematemesis Skin/Breast Denies pruritus, Denies lesions, Denies rash and Denies jaundice Neuro Reports Normal hearing present and Denies Abnormal speech present Endo Denies fatigue Aller/Immun Denies throat swelling and Denies tongue swelling Physical Exam Vital Signs: Last Vital Signs Pulse 70 08/04/23 11:12 BP 127/76 08/04/23 11:12 BMI result Body Mass Index 38.0 Const General: cooperative, no acute distress, well developed and well groomed Nutritional Appearance: well nourished and obese Orientation/consciousness: oriented to person, oriented to place and oriented to time Limitations: No language barrier HEENT Head: Yes normocephalic and Yes atraumatic Eyes General: appearance normal, both eyes and all related structures Pupils: Equal, round and reactive pupils present Neck Neck: Yes normal visual inspection and Yes no lymphadenopathy Thyroid: Thyroid normal Resp Effort & Inspection: normal respiratory effort and able to speak in complete sentences Auscultation: clear to auscultation bilaterally Cardio Rate: regular rate Rhythm: regular rhythm Heart sounds: Normal, physiologic split S2 sound present Peripheral pulses: radial pulses present and posterior tibial pulses present GI Inspection: No distended, Yes Abdominal panniculus present and Yes obesity Palpation (GI): Soft to palpation, nontender, no guarding, not rigid and No hepatosplenomegaly present Percussion: Yes normal to percussion Auscultation: normal bowel sounds Rectal Exam - Female: deferred Skin General skin exam: no rashes or lesions noted, turgor normal, skin not dry, no jaundice, No spider nevi and no striae Rashes: no rashes Nails: normal Neuro General: oriented to person, oriented to place and oriented to time Cranial nerves: Yes Equal, round and reactive pupils present and Yes Normal hearing present Speech: No Abnormal speech present Extrem General: Yes normal to inspection, No clubbing, No cyanosis and No edema Psych Appearance: grossly normal and well kempt Mental Status: mental status grossly normal Speech and movement: Normal speech and movement present Affect: normal affect Attitude: cooperative Thought process: Normal thought process present and not confabulating Thought content: Normal thought content present Insight: Limited insight present (Psych) Judgement: Limited judgement present (Psych) Assessment & Plan Assessment & Plan (1) Dysphagia: Code(s): R13.10 - Dysphagia, unspecified (2) Upper abdominal pain: Code(s): R10.10 - Upper abdominal pain, unspecified (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 She says that certain foods that she eats seems to get stuck at the sternal notch. She has had to give self Heimlich at times. No trouble with liquids. She has had 2 episodes of sharp, twisting pain in the low gastric area just above the umbilicus that lasted about 60 seconds. No other abd pain. She also has severe GERD, it especially wakes her up when sleeping. She will have acid brash that comes straight out of my nose. She eats a LOT of spicy foods, but recently stopped this. There were no new medicines at the beginning of this, she was recently given topamax and phentermine for wt loss but has not started taking this. No diet changes. No illness. She has a maternal uncle for GERD. She has gained significant wt recently her BMI going from 36 to 38. She feels that her neck will choke her if she raised her arms above her head, has 2 sisters with thyroid disease. She is s/p cholecystectomy. she used to have post prandial diarrhea with greasy foods, but for the past 3 weeks she has been feeling constipated. She will have soft sticky stools with incomplete evacuation for 3-4 days, then a large BM with watery stools. We discuss raising the HOB on blocks for now. Start qd cholestyramine and continue pantoprazole. 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 This is likely causing bile gastritis and bile GERD. ROV 3 weeks and after EGD/ barium swallow (on if possible). Orders: Orders FL barium swallow Today K91.5 - Postcholecystectomy syndrome, R10.10 - Upper abdominal pain, unspecified, R13.10 - Dysphagia, unspecified Complete Blood Count Auto Diff Today R10.10 - Upper abdominal pain, unspecified TSH reflex Free T4 Today R10.10 - Upper abdominal pain, unspecified EGD with Alarcon - GI Use Only Today K91.5 - Postcholecystectomy syndrome, R10.10 - Upper abdominal pain, unspecified, R13.10 - Dysphagia, unspecified Comprehensive Met. Panel Today R10.10 - Upper abdominal pain, unspecified H pylori Ag Stool Today R10.10 - Upper abdominal pain, unspecified Medications: New cholestyramine (with sugar) 4 gram administer w/meal; avoid other meds within 1hr before or 4-6hr after dose 4 grams PO DAILY 60 ea 3RF K91.5 - Postcholecystectomy syndrome Coding Level of Care Code New Pt Level 3 (42703) Diagnoses Dysphagia R13.10 Upper abdominal pain R10.10 Post-cholecystectomy syndrome K91.5
[2023-08-04 11:12] VITALS: BP 127/76; PULSE 70; BMI 38.0
== END 2023-08-04 11:56 | disposition home or self-care (01) ==
PROVIDERS: PCP Registered Nurse; Referring Provider Registered Nurse; Visit Provider Nurse Practitioner
DX: R13.10 Dysphagia, unspecified (principal); R10.10 Upper abdominal pain, unspecified; K91.5 Postcholecystectomy syndrome
CPT/HCPCS: 99203

== ENCOUNTER 2023-08-29 11:13 | Outpatient (REF) | payer MEDICAID, SELFPAY | END 2023-08-29 11:14 | disposition home or self-care (01) | LOC: HO.LNP 11:13 | PROVIDERS: Visit Provider Nurse Practitioner | DX: R10.10 Upper abdominal pain, unspecified (principal) | CPT/HCPCS: 87338 ==

== ENCOUNTER 2023-10-13 07:18 | Day surgery (SDC) | payer MEDICAID, SELFPAY ==
[2023-10-13 08:00] VITALS: BP 143/88; PULSE 76; RESP 18; TEMP 36.6; O2SAT 98; BMI 39.5
--- NOTE | 2023-10-13 08:20 | P.CONAN_ITS ---
[facility] Active Problems Active Problems: All Active Problems (Updated 08/04/23 @ 11:45 by SASHA Mace) Post-cholecystectomy syndrome (Acute) Upper abdominal pain (Acute) Dysphagia (Acute) Cystocele with prolapse (Acute) Female stress incontinence (Acute) Nephrolithiasis (Acute) Impaired fasting glucose (Acute) Bipolar disorder (Acute) Migraines (Acute) High cholesterol (Acute) HTN (hypertension), benign (Acute) Obesity (Acute) LAURA (obstructive sleep apnea) (Acute) Past Medical History Medical History (Updated 08/04/23 @ 11:45 by SASHA Mace) Eroded bladder suspension mesh Healthy adult Family History Family History (Updated 08/04/23 @ 11:25 by GEMMA Hernandez) Maternal Grandmother Breast cancer Paternal Aunt Breast cancer Family history of problems with anesthesia: No Surgical History Surgical History History of bilateral tubal ligation S/P cholecystectomy History of Problems with Anesthesia: No Social History Social History (Updated 08/04/23 @ 11:26 by GEMMA Hernandez) Alcohol intake: never Patient Tobacco Use Status: Never used Tobacco Use of substances other than those prescribed or required for medical reasons: No Are you DNR?: No Advance Directives: No Advance Directives Information Provided: Yes Meds Allergies Allergy/AdvReac Type Severity Reaction Status Date / Time No Known Allergies Allergy Verified 08/04/23 11:26 [No Known Allergies*] Home Medications ?Medication ?Instructions ?Recorded ?Confirmed ?Last Taken ?Type pantoprazole 40 mg tablet,delayed 40 mg PO DAILY 08/04/23 10/13/23 Unknown History release phentermine 8 mg tablet 8 mg PO TID 08/04/23 10/13/23 Unknown History Exam Height,Weight and Vital Signs: Height 5 ft 2 in Weight 97.976 kg Last Vital Signs Temp 97.9 F 10/13/23 08:00 Pulse 76 10/13/23 08:00 Resp 18 10/13/23 08:00 BP 143/88 H 10/13/23 08:00 Pulse Ox 98 10/13/23 08:00 O2 Del Method Room Air 10/13/23 08:00 Airway Mallampati Class: III TM Dist: >3cm Neck ROM: Full Assessment and Plan Assessment Anesthesia Assessment: Anesthesia Plan Discussed and Chart Reviewed Final Anesthetic Review Family History of Problems with Anesthesia: No History of Problems with Anesthesia: No NPO: Yes ASA Class: III Final Preanesthetic Review: No Changes in Pt Med Stat, Meds/Allgs Chart Reviewed, Consent Obtained/Reviewed and Anes Risks/Benef Reviewed Patient Risk: Intermediate Procedure Risk: Low Anesthetic Plan Anesthetic Plan: TIVA Disposition: Standard PACU
--- NOTE | 2023-10-13 08:24 | MHC.SHP ---
Pre-Procedural Eval Section A - 24 Hr Update-Section A only Date of Service: 10/13/23 Section B - Complete if H&P > 30 days Chief Complaint: Dysphagia, unspecified Details of Present Illness: PMX LAURA Obesity Hypertension High cholesterol Migraines Bipolar disorder Impaired fasting glucose Nephrolithiasis Female stress incontinence/cystocele * SURGICAL HISTORY Cholecystectomy Bilateral tubal ligation-Hawkins Bladder sling * Present Medications: see Short Stay Collaborative assessment Allergies: Allergies Allergy/AdvReac Type Severity Reaction Status Date / Time No Known Allergies Allergy Verified 08/04/23 11:26 [No Known Allergies*] Review of Systems Review of Systems Comment: 10 point ROS as previously documented Exam Exam Comment: Gen appear: No acute distress HEENT: no icterus Chest: No overt resp distress Abd: soft, nontender, nondistended Psych: Stable affect, answering questions appropriately Neuro: A/Ox3 noted to move all extremities spontaneously Ext: no peripheral edema Plan Diagnosis/Plan: Unchanged I have reviewed the history and physical and performed a pertinent physical examination on my patient. No changes have occurred unless specified. Time Spent With Patient Time: Total time managing care of this patient today ____ minutes.
[2023-10-13 08:39] VITALS: BP 143/88; PULSE 76; RESP 18; TEMP 36.6; O2SAT 98
[2023-10-13] MEDS: Lactated Ringers 1,000 ML 50 ML IVCONT (08:43)
[2023-10-13 09:22] VITALS: BP 119/76; PULSE 90; RESP 16; TEMP 36.3; O2SAT 96
--- NOTE | 2023-10-13 09:23 | P.OP_ITS ---
Operative Note Operative Note Date of Service: 10/13/23 Narrative: Procedure: Esophagogastroduodenoscopy Endoscopist: Marsha Montano MD Indication: Dysphagia Anesthesia Provider: Shavon Palacios CRNA Anesthesia Type: MAC EGD Procedure:?? The procedure, indications, preparation and potential complications were reviewed with the patient, who indicated understanding and gave written informed consent to proceed. A physical exam was performed. The endoscope was introduced through the mouth, and advanced to the second part of duodenum. The mucosa was carefully examined on slow withdrawal of the endoscope. The patient tolerated the procedure well. There were no immediate complications.? ? EGD Findings:? * Esophagus:? Focal area of heterotopic gastric mucosa was normal in the upper esophagus. Normal mucosa noted in the remaining esophagus. The Z line was at 35 cm and a nonobstructing partial Schatzki's ring was noted right above it. There was a moderate size hiatal hernia with the diaphragmatic pinch at 40 cm. Middle and lower esophagus forceps biopsies were obtained to rule out eosinophilic esophagitis. * Stomach:? Mild irritation and erythema was noted in the body and antrum of the stomach. A few scattered polyps were seen in the fundus. Retroflexion the cardia showed Hill grade 3 hiatal hernia. Random gastric biopsies were taken to rule out H Pylori infection. * Duodenum:? Normal mucosa was noted in the whole of the examined duodenum. Additional intervention: A soft tipped Savary wire was advanced through the biopsy channel of the gastroscope and advanced to the antrum. The gastroscope was then backed out. Savary Michael bougie was advanced over the guidewire and the esophagus was incrementally dilated from 18 mm to 20 mm. Mild resistance was felt at 20 mm. On relook, there was no heme or tear noted. ? EGD Impressions:? * Inlet patch * Nonobstructing Schatzki's ring * Normal esophageal mucosa (biopsy, dilation) * Fundic gland polyps * Gastritis (biopsy) * Normal duodenum ?? Recommendations:?? * Follow biopsy results. Our office will call or send a letter with results within 7-10 days. * If patient experiences improvement in swallowing, can repeat dilation as needed * If H pylori +, patient will be prescribed eradication therapy followed by test of cure. * Avoid NSAIDs. Above has been reviewed with the patient.
[2023-10-13 09:37] VITALS: BP 119/89; PULSE 87; RESP 18; TEMP 36.3; O2SAT 98
== END 2023-10-13 10:25 | disposition home or self-care (01) ==
PROVIDERS: PCP Registered Nurse; Visit Provider Internal Medicine
PROC: (CPT 43248; principal; 2023-10-13 11:00)
DX: K22.2 Esophageal obstruction (principal); K29.50 Unspecified chronic gastritis without bleeding; K31.7 Polyp of stomach and duodenum; K44.9 Diaphragmatic hernia without obstruction or gangrene; K21.9 Gastro-esophageal reflux disease without esophagitis; K91.5 Postcholecystectomy syndrome; E66.9 Obesity, unspecified; Z68.38 Body mass index [BMI] 38.0-38.9, adult; I10 Essential (primary) hypertension; E78.00 Pure hypercholesterolemia, unspecified; G47.33 Obstructive sleep apnea (adult) (pediatric); R73.01 Impaired fasting glucose; Z90.49 Acquired absence of other specified parts of digestive tract; Z98.51 Tubal ligation status
CPT/HCPCS: 43248; 43239; 88305; 88313; 88342; J2250; J2704

== ENCOUNTER → 2023-10-13 07:18 | Outpatient (BNV) | payer MEDICAID, SELFPAY | PROVIDERS: PCP Registered Nurse; Visit Provider Internal Medicine | DX: R13.10 Dysphagia, unspecified (principal); K22.2 Esophageal obstruction; K31.7 Polyp of stomach and duodenum; K29.70 Gastritis, unspecified, without bleeding | CPT/HCPCS: 43248 ==

== ENCOUNTER 2023-10-27 09:47 | Outpatient (AMB) | payer MEDICAID, SELFPAY ==
[2023-10-27 09:56] VITALS: BP 117/71; PULSE 64; BMI 38.8
--- NOTE | 2023-10-27 09:56 | A.OFFVIS_ITS ---
Vital Signs 10/27/23 09:56 Height 5 ft 2 in Weight 212 lb 1.355 oz BMI 38.8 BP 117/71 Blood Pressure Location Rt brachial Position Sitting Pulse 64 Intake Visit Reasons: S/p egd Intake Note: Patient returns to office in follow up s/p EGD performed on 09/26/23. CC: Patient continues having bad acid reflux. Denies other GI symptoms today. 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 She says that certain foods that she eats seems to get stuck at the sternal notch. She has had to give self Heimlich at times. No trouble with liquids. She has had 2 episodes of sharp, twisting pain in the low gastric area just above the umbilicus that lasted about 60 seconds. No other abd pain. She also has severe GERD, it especially wakes her up when sleeping. She will have acid brash that comes straight out of my nose. She eats a LOT of spicy foods, but recently stopped this. There were no new medicines at the beginning of this, she was recently given topamax and phentermine for wt loss but has not started taking this. No diet changes. No illness. She has a maternal uncle for GERD. She has gained significant wt recently her BMI going from 36 to 38. She feels that her neck will choke her if she raised her arms above her head, has 2 sisters with thyroid disease. She is s/p cholecystectomy. she used to have post prandial diarrhea with greasy foods, but for the past 3 weeks she has been feeling constipated. She will have soft sticky stools with incomplete evacuation for 3-4 days, then a large BM with watery stools. We discuss raising the HOB on blocks for now. Start qd cholestyramine and continue pantoprazole. 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 This is likely causing bile gastritis and bile GERD. ROV 3 weeks and after EGD/ barium swallow (on if possible). Orders: Orders FL barium swallow Today K91.5 - Postcholecystectomy syndrome, R10.10 - Upper abdominal pain, unspecified, R13.10 - Dysphagia, unspecified Complete Blood Count Auto Diff Today R10.10 - Upper abdominal pain, unspecified TSH reflex Free T4 Today R10.10 - Upper abdominal pain, unspecified EGD with Alarcon - GI Use Only Today K91.5 - Postcholecystectomy syndrome, R10.10 - Upper abdominal pain, unspecified, R13.10 - Dysphagia, unspecified Comprehensive Met. Panel Today R10.10 - Upper abdominal pain, unspecified H pylori Ag Stool Today R10.10 - Upper abdominal pain, unspecified Medications: New cholestyramine (with sugar) 4 gram administer w/meal; avoid other meds within 1hr before or 4-6hr after dose 4 grams PO DAILY 60 ea 3RF K91.5 - Postcholecystectomy syndrome Labs: Laboratory Tests 08/04/23 12:18 WBC 6.1 Hgb 12.8 Hct 39.4 Plt Count 268 Estimated GFR > 60 Total Bilirubin 0.3 AST 25 ALT 36 H Alkaline Phosphatase 80 TSH 2.00 EGD EGD Findings:? * Esophagus:? Focal area of heterotopic gastric mucosa was normal in the upper esophagus. Normal mucosa noted in the remaining esophagus. The Z line was at 35 cm and a nonobstructing partial Schatzki's ring was noted right above it. There was a moderate size hiatal hernia with the diaphragmatic pinch at 40 cm. Middle and lower esophagus forceps biopsies were obtained to rule out eosinophilic esophagitis. * Stomach:? Mild irritation and erythema was noted in the body and antrum of the stomach. A few scattered polyps were seen in the fundus. Retroflexion the cardia showed Hill grade 3 hiatal hernia. Random gastric biopsies were taken to rule out H Pylori infection. * Duodenum:? Normal mucosa was noted in the whole of the examined duodenum. Additional intervention: A soft tipped Savary wire was advanced through the biopsy channel of the gastroscope and advanced to the antrum. The gastroscope was then backed out. Savary Michael bougie was advanced over the guidewire and the esophagus was incrementally dilated from 18 mm to 20 mm. Mild resistance was felt at 20 mm. On relook, there was no heme or tear noted. ? EGD Impressions:? * Inlet patch * Nonobstructing Schatzki's ring * Normal esophageal mucosa (biopsy, dilation) * Fundic gland polyps * Gastritis (biopsy) * Normal duodenum??Recommendations:?? * Follow biopsy results. Our office will call or send a letter with results within 7-10 days. * If patient experiences improvement in swallowing, can repeat dilation as needed * If H pylori +, patient will be prescribed eradication therapy followed by test of cure. * Avoid NSAIDs. BIOPSY Received: 10/13/23 Diagnosis A. Stomach, random, biopsy: Antral-type and oxyntic mucosa with mild chronic inactive inflammation; no Helicobacter organisms seen. B. Esophagus, lower, biopsy: Squamous epithelium within normal limits; no inflammation seen. C. Esophagus, middle, biopsy: Squamous epithelium within normal limits; no inflammation seen BARIUM SWALLOW Scheduled for 11/03 TODAY'S VISIT She tolerated the procedure well. Her swallowing has improved and she is not snoring (interesting). She continues on her pantroprazole 40mg qd with good gerd control. She has barium swallow coming up. ROV after barium swallow. [facility] Medical History Eroded bladder suspension mesh Healthy adult Surgical History History of esophagogastroduodenoscopy (EGD) History of bilateral tubal ligation S/P cholecystectomy Family History Maternal Grandmother Breast cancer Paternal Aunt Breast cancer Social History Alcohol intake: never Patient Tobacco Use Status: Never used Tobacco Review of Systems Const Denies fatigue, Denies fever(s), Denies night sweats, Denies poor appetite and Denies weight loss ENT Reports Normal hearing present, Denies dental pain, Denies dysphagia, Denies hearing loss, Denies mouth pain, Denies odynophagia, Denies throat swelling, Denies tongue swelling and Reports other (Dentition adequate) Card Reports no additional complaints Resp Reports no additional complaints GI Details: Denies abdominal pain, Denies melena, Denies bloating, Denies hematochezia, Denies constipation, Denies GI cramping, Denies dysphagia, Denies excessive flatus, Denies early satiety, Denies heartburn, Denies diarrhea, Denies nausea, Denies odynophagia, Denies vomiting and Denies hematemesis Skin/Breast Denies pruritus, Denies lesions, Denies rash and Denies jaundice Neuro Reports Normal hearing present and Denies Abnormal speech present Endo Denies fatigue Aller/Immun Denies throat swelling and Denies tongue swelling Physical Exam Vital Signs: Last Vital Signs Pulse 64 10/27/23 09:56 BP 117/71 10/27/23 09:56 BMI result Body Mass Index 38.8 Const General: cooperative, no acute distress, well developed and well groomed Nutritional Appearance: well nourished and obese Orientation/consciousness: oriented to person, oriented to place and oriented to time Limitations: No language barrier HEENT Head: Yes normocephalic and Yes atraumatic Eyes General: appearance normal, both eyes and all related structures Pupils: Equal, round and reactive pupils present Neck Neck: Yes normal visual inspection and Yes no lymphadenopathy Thyroid: Thyroid normal Resp Effort & Inspection: normal respiratory effort and able to speak in complete sentences Auscultation: clear to auscultation bilaterally Cardio Rate: regular rate Rhythm: regular rhythm Heart sounds: Normal, physiologic split S2 sound present Peripheral pulses: radial pulses present and posterior tibial pulses present GI Inspection: No distended, Yes Abdominal panniculus present and Yes obesity Palpation (GI): Soft to palpation, nontender, no guarding, not rigid and No hepatosplenomegaly present Percussion: Yes normal to percussion Auscultation: normal bowel sounds Rectal Exam - Female: deferred Skin General skin exam: no rashes or lesions noted, turgor normal, skin not dry, no jaundice, No spider nevi and no striae Rashes: no rashes Nails: normal Neuro General: oriented to person, oriented to place and oriented to time Cranial nerves: Yes Equal, round and reactive pupils present and Yes Normal hearing present Speech: No Abnormal speech present Extrem General: Yes normal to inspection, No clubbing, No cyanosis and No edema Psych Appearance: grossly normal and well kempt Mental Status: mental status grossly normal Speech and movement: Normal speech and movement present Affect: normal affect Attitude: cooperative Thought process: Normal thought process present and not confabulating Thought content: Normal thought content present Insight: Fair insight present (Psych) Judgement: Fair judgement present (Psych) Results Reviewed Results Reviewed: Laboratory Tests 08/04/23 12:18 WBC 6.1 Hgb 12.8 Hct 39.4 Plt Count 268 Estimated GFR > 60 Total Bilirubin 0.3 AST 25 ALT 36 H Alkaline Phosphatase 80 TSH 2.00 EGD EGD Findings:? * Esophagus:? Focal area of heterotopic gastric mucosa was normal in the upper esophagus. Normal mucosa noted in the remaining esophagus. The Z line was at 35 cm and a nonobstructing partial Schatzki's ring was noted right above it. There was a moderate size hiatal hernia with the diaphragmatic pinch at 40 cm. Middle and lower esophagus forceps biopsies were obtained to rule out eosinophilic esophagitis. * Stomach:? Mild irritation and erythema was noted in the body and antrum of the stomach. A few scattered polyps were seen in the fundus. Retroflexion the cardia showed Hill grade 3 hiatal hernia. Random gastric biopsies were taken to rule out H Pylori infection. * Duodenum:? Normal mucosa was noted in the whole of the examined duodenum. Additional intervention: A soft tipped Savary wire was advanced through the biopsy channel of the gastroscope and advanced to the antrum. The gastroscope was then backed out. Savary Michael bougie was advanced over the guidewire and the esophagus was incrementally dilated from 18 mm to 20 mm. Mild resistance was felt at 20 mm. On relook, there was no heme or tear noted. ? EGD Impressions:? * Inlet patch * Nonobstructing Schatzki's ring * Normal esophageal mucosa (biopsy, dilation) * Fundic gland polyps * Gastritis (biopsy) * Normal duodenum??Recommendations:?? * Follow biopsy results. Our office will call or send a letter with results within 7-10 days. * If patient experiences improvement in swallowing, can repeat dilation as needed * If H pylori +, patient will be prescribed eradication therapy followed by test of cure. * Avoid NSAIDs. BIOPSY Received: 10/13/23 Diagnosis A. Stomach, random, biopsy: Antral-type and oxyntic mucosa with mild chronic inactive inflammation; no Helicobacter organisms seen. B. Esophagus, lower, biopsy: Squamous epithelium within normal limits; no inflammation seen. C. Esophagus, middle, biopsy: Squamous epithelium within normal limits; no inflammation seen Assessment & Plan Assessment & Plan (1) Dysphagia: Code(s): R13.10 - Dysphagia, unspecified Category: Medical (2) GERD (gastroesophageal reflux disease): Code(s): K21.9 - Gastro-esophageal reflux disease without esophagitis Category: Medical Plan She tolerated the procedure well. Her swallowing has improved and she is not snoring (interesting). She continues on her pantroprazole 40mg qd with good gerd control. She has barium swallow coming up. ROV after barium swallow. Coding Level of Care Code Est Pt Level 3 (53405) Diagnoses Dysphagia R13.10 GERD (gastroesophageal reflux disease) K21.9
== END 2023-10-27 10:11 | disposition home or self-care (01) ==
PROVIDERS: PCP Registered Nurse; Visit Provider Nurse Practitioner
DX: R13.10 Dysphagia, unspecified (principal); K21.9 Gastro-esophageal reflux disease without esophagitis
CPT/HCPCS: 99213

== ENCOUNTER → 2023-10-27 09:47 | Outpatient (BNVA) | payer MEDICAID, SELFPAY | PROVIDERS: PCP Registered Nurse; Visit Provider Nurse Practitioner | DX: R13.10 Dysphagia, unspecified (principal); K21.9 Gastro-esophageal reflux disease without esophagitis | CPT/HCPCS: 99212 ==

== ENCOUNTER 2023-11-04 08:45 | Outpatient (REF) | payer MEDICAID, SELFPAY ==
--- NOTE | ~2023-11-04 | FL_ITS ---
EXAMINATION: XR FLUOROSCOPY UPPER GI WITH AIR CLINICAL INFORMATION: Dysphagia COMPARISON: None TECHNIQUE: Fluoroscopic air contrast upper GI examination was performed utilizing standard techniques with thin and thick barium and effervescent granules. Numerous spot images were obtained. FINDINGS: Lateral cine images of the oropharynx and hypopharynx demonstrate normal swallow mechanism with normal epiglottic inversion and soft palate elevation. No tracheal penetration, glottic or subglottic aspiration identified. No nasopharyngeal reflux present. Hypopharyngeal structures appear normal without evidence of mass or diverticulum. There was no significant cricopharyngeal achalasia. Dual and single contrast images of the esophagus demonstrate a normal caliber and contour. There is felinization of the mid and lower esophageal mucosa. A nonobstructing Schatzki's ring is present. No masses or ulcerations are identified. Esophageal peristalsis was mildly disorganized. Surgical clips are present in the right upper quadrant. A small type I hiatal hernia is present. Gastroesophageal reflux is seen up to the midesophagus. Dual contrast and single contrast images of the stomach demonstrated normal contour and mucosal pattern without evidence of mass, ulceration, or other abnormality. Contrast freely passed into the gastric antrum and duodenal bulb without delay. Single and air-contrast images of the duodenal bulb demonstrate no abnormality. The duodenal sweep has a normal appearance, course, and mucosal fold appearance. The imaged proximal jejunum has a normal fold pattern and caliber. FLUOROSCOPY TIME: 3 minutes 44 seconds Number of Spot Images: 10 Number of Cine: 13 DOSE AREA PRODUCT: 2936 uGy-m2 (microgray-meter squared) FL/FL barium swallow IMPRESSION: 1. Felinization of the mid and lower esophageal mucosa. This is a benign finding that is associated with gastroesophageal reflux. 2. Nonobstructing Schatzki's ring 3. Mildly disorganized esophageal peristalsis 4. Status post cholecystectomy 6. Small type I hiatal hernia 7. Moderate gastroesophageal reflux This procedure was performed by Bismark Thayer PA-C, and supervised by Dr. Blake
== END 2023-11-04 08:46 | disposition home or self-care (01) ==
LOC: HO.XRAY 08:45
PROVIDERS: PCP Registered Nurse; Visit Provider Nurse Practitioner
DX: R13.10 Dysphagia, unspecified (principal); R10.10 Upper abdominal pain, unspecified; K91.5 Postcholecystectomy syndrome
CPT/HCPCS: 74220

== ENCOUNTER → 2023-11-04 08:46 | Outpatient (BNV) | payer MEDICAID, SELFPAY | PROVIDERS: PCP Registered Nurse; Visit Provider Physician Assistant Surgical | DX: R13.10 Dysphagia, unspecified (principal) | CPT/HCPCS: 74246 ==

== ENCOUNTER 2023-11-18 14:03 | Outpatient (AMB) | payer MEDICAID, SELFPAY ==
--- NOTE | 2023-11-18 14:06 | MHC.OFFVIS ---
Vital Signs 11/18/23 14:10 Height 5 ft 2 in Weight 209 lb 14.081 oz BMI 38.4 BP 133/81 Blood Pressure Location Lt brachial Position Sitting Pulse 79 Intake Visit Reasons: Barium swallow follow up Intake Note: Nilam returns to in office follow up of barium swallow. CC: Patient states that she has cut down on spicy food to help with her acid reflux and heartburn and she is doing much better. Clinical Academic Allergist Required: No Accompanied by: Self / Same As Patient Allergies No Known Allergies [No Known Allergies*] Allergy (Verified 11/18/23 14:14) HPI HPI Barium swallow follow up: Details: Assessment & Plan (1) Dysphagia: Code(s): R13.10 - Dysphagia, unspecified Category: Medical (2) GERD (gastroesophageal reflux disease): Code(s): K21.9 - Gastro-esophageal reflux disease without esophagitis Category: Medical Plan She tolerated the procedure well. Her swallowing has improved and she is not snoring (interesting). She continues on her pantroprazole 40mg qd with good gerd control. She has barium swallow coming up. ROV after barium swallow. epithelium within normal limits; no inflammation seen BARIUM SWALLOW 11/04/23 MPRESSION: 1. Felinization of the mid and lower esophageal mucosa. This is a benign finding that is associated with gastroesophageal reflux. 2. Nonobstructing Schatzki's ring 3. Mildly disorganized esophageal peristalsis 4. Status post cholecystectomy 6. Small type I hiatal hernia 7. Moderate gastroesophageal reflux TODAY'S VISIT She continues to do well with her swallowing. She continues on her pantroprazole 40mg qd with good gerd control. Return office visit in 6 months [facility] Medical History Eroded bladder suspension mesh Healthy adult Surgical History History of esophagogastroduodenoscopy (EGD) History of bilateral tubal ligation S/P cholecystectomy Family History Maternal Grandmother Breast cancer Paternal Aunt Breast cancer Social History Alcohol intake: never Patient Tobacco Use Status: Never used Tobacco Review of Systems Const Denies fatigue, Denies fever(s), Denies night sweats, Denies poor appetite and Denies weight loss ENT Reports Normal hearing present, Denies dental pain, Denies dysphagia, Denies hearing loss, Denies mouth pain, Denies odynophagia, Denies throat swelling, Denies tongue swelling and Reports other (Dentition adequate) Card Reports no additional complaints Resp Reports no additional complaints GI Details: Denies abdominal pain, Denies melena, Denies bloating, Denies hematochezia, Denies constipation, Denies GI cramping, Denies dysphagia, Denies excessive flatus, Denies early satiety, Reports heartburn, Denies diarrhea, Denies nausea, Denies odynophagia, Denies vomiting and Denies hematemesis Skin/Breast Denies pruritus, Denies lesions, Denies rash and Denies jaundice Neuro Reports Normal hearing present and Denies Abnormal speech present Endo Denies fatigue Aller/Immun Denies throat swelling and Denies tongue swelling Physical Exam Vital Signs: Last Vital Signs Pulse 79 11/18/23 14:10 BP 133/81 11/18/23 14:10 BMI result Body Mass Index 38.4 Const General: cooperative, no acute distress, well developed and well groomed Nutritional Appearance: well nourished and obese Orientation/consciousness: oriented to person, oriented to place and oriented to time Limitations: No language barrier HEENT Head: Yes normocephalic and Yes atraumatic Eyes General: appearance normal, both eyes and all related structures Pupils: Equal, round and reactive pupils present Neck Neck: Yes normal visual inspection and Yes no lymphadenopathy Thyroid: Thyroid normal Resp Effort & Inspection: normal respiratory effort and able to speak in complete sentences Auscultation: clear to auscultation bilaterally Cardio Rate: regular rate Rhythm: regular rhythm Heart sounds: Normal, physiologic split S2 sound present Peripheral pulses: radial pulses present and posterior tibial pulses present GI Inspection: No distended, No Abdominal panniculus present and Yes obesity Palpation (GI): Soft to palpation, nontender, no guarding, not rigid and No hepatosplenomegaly present Percussion: Yes normal to percussion Auscultation: normal bowel sounds Rectal Exam - Female: deferred Skin General skin exam: no rashes or lesions noted, turgor normal, skin not dry, no jaundice, No spider nevi and no striae Rashes: no rashes Nails: normal Neuro General: oriented to person, oriented to place and oriented to time Cranial nerves: Yes Equal, round and reactive pupils present and Yes Normal hearing present Speech: No Abnormal speech present Extrem General: Yes normal to inspection, No clubbing, No cyanosis and No edema Psych Appearance: grossly normal and well kempt Mental Status: mental status grossly normal Speech and movement: Normal speech and movement present Affect: normal affect Attitude: cooperative Thought process: Normal thought process present and not confabulating Thought content: Normal thought content present Insight: Fair insight present (Psych) Judgement: Fair judgement present (Psych) Results Reviewed Results Reviewed: BARIUM SWALLOW 11/04/23 MPRESSION: 1. Felinization of the mid and lower esophageal mucosa. This is a benign finding that is associated with gastroesophageal reflux. 2. Nonobstructing Schatzki's ring 3. Mildly disorganized esophageal peristalsis 4. Status post cholecystectomy 6. Small type I hiatal hernia 7. Moderate gastroesophageal reflux Assessment & Plan Assessment & Plan (1) GERD (gastroesophageal reflux disease): Code(s): K21.9 - Gastro-esophageal reflux disease without esophagitis Category: Medical (2) Post-cholecystectomy syndrome: Code(s): K91.5 - Postcholecystectomy syndrome Category: Medical (3) Dysphagia: Code(s): R13.10 - Dysphagia, unspecified Category: Medical Plan She continues to do well with her swallowing. She continues on her pantroprazole 40mg qd with good gerd control. Return office visit in 6 months Coding Level of Care Code Est Pt Level 3 (91300) Diagnoses GERD (gastroesophageal reflux disease) K21.9 Post-cholecystectomy syndrome K91.5 Dysphagia R13.10
[2023-11-18 14:10] VITALS: BP 133/81; PULSE 79; BMI 38.4
== END 2023-11-18 14:36 | disposition home or self-care (01) ==
PROVIDERS: PCP Registered Nurse; Visit Provider Nurse Practitioner
DX: K21.9 Gastro-esophageal reflux disease without esophagitis (principal); K91.5 Postcholecystectomy syndrome; R13.10 Dysphagia, unspecified
CPT/HCPCS: 99213

== ENCOUNTER → 2023-11-18 14:03 | Outpatient (BNVA) | payer MEDICAID, SELFPAY | PROVIDERS: PCP Registered Nurse; Visit Provider Nurse Practitioner | DX: K21.9 Gastro-esophageal reflux disease without esophagitis (principal); K91.5 Postcholecystectomy syndrome; R13.10 Dysphagia, unspecified | CPT/HCPCS: 99212 ==

== ENCOUNTER → 2023-11-22 09:10 | Outpatient (REF) | payer MEDICAID, SELFPAY | LOC: HO.SL 09:10 | PROVIDERS: PCP Registered Nurse; Visit Provider Registered Nurse | DX: G47.33 Obstructive sleep apnea (adult) (pediatric) (principal) | CPT/HCPCS: 95806 ==

== ENCOUNTER → 2023-11-22 19:00 | Outpatient (BNV) | payer MEDICAID, SELFPAY | PROVIDERS: PCP Registered Nurse; Visit Provider Internal Medicine | DX: G47.33 Obstructive sleep apnea (adult) (pediatric) (principal) | CPT/HCPCS: 95806 ==

== ENCOUNTER 2024-03-21 14:57 | Outpatient (REF) | payer MEDICAID, SELFPAY ==
[2024-03-21 16:22] LABS: MANUAL DIFF FLAG NO
[2024-03-21 16:30] LABS: Basophils Percent Auto 0.4 % (0-2); Eosinophils Absolute Auto 0.2 X10*3/uL (0.0-0.4); Eosinophils Percent Auto 1.7 % (0-4); Hematocrit 39.9 % (37.0-47.0); Imm Gran Abs Auto 0.04 X10*3/uL (0.00-0.03); Imm Gran Pct Auto 0.4 % (0.0-0.4); Lymphocytes Percent Auto 20.5 % (20-40); Mean Corpuscular HGB Conc 32.6 g/dl (31.0-35.0); Mean Corpuscular Hemoglobin 28.6 pg (27.0-33.0); Mean Corpuscular Volume 87.7 fL (80.0-98.0); Monocytes Absolute Auto 0.6 X10*3/uL (0.1-1.2); Monocytes Percent Auto 5.9 % (2-11); Neutrophils Absolute Auto 6.8 x10*3/uL (2.0-8.3); Neutrophils Percent Auto 71.1 % (45-73); Platelet Count 282 X10*3/uL (160-400); Red Blood Count 4.55 X10*6/uL (4.20-5.50); Red Cell Distribution Width 13.6 % (11.0-16.0); White Blood Count 9.5 X10*3/uL (4.8-10.8)
[2024-03-26 13:58] LABS: Immunoglobulin A 703 mg/dL (47-310); Transglutaminase IgA <1.0 U/mL
== END 2024-03-21 14:58 | disposition home or self-care (01) ==
LOC: HO.HHCL 14:57
PROVIDERS: Visit Provider Student in an Organized Health Care Education/Training Program
DX: R19.7 Diarrhea, unspecified (principal)
CPT/HCPCS: 36415; 82784; 85025; 86364

== ENCOUNTER 2024-10-05 07:47 | Emergency (ER) | payer MEDICAID, SELFPAY ==
[2024-10-05 07:50] VITALS: BP 143/64; PULSE 82; RESP 16; TEMP 36.6; O2SAT 99; BMI 38.1
--- NOTE | 2024-10-05 09:59 | ED_ITS ---
HPI - General Adult General Chief complaint: Allergic Reaction Stated complaint: ques allergic reaction throat tightness rash itchy Time Seen by Provider: 10/05/24 09:54 Source: patient Mode of arrival: ambulatory Limitations: no limitations History of Present Illness ED Provider: Zina James PA-C HPI narrative: Patient is a 44 year old assigned female at with a history of migraines, HTN, bipolar disorder, and GERD presenting to the emergency department today with a suspected allergic reaction. Patient states that since yesterday she has been having an itchy throat and itchy skin. Patient states that she ate a jelly donut from [place] which she has had numerous times in the past but ever since she has had these symptoms. Patient states that she took 2 doses of Benadryl but the symptoms persist. Patient denies any dizziness, lightheadedness, abdominal pain, nausea, vomiting, fever, chills, blurry vision, double vision, loss of vision, chest pain, difficulty breathing, shortness of breath, back pain, night sweats, pain with urination, increased urinary frequency, increased urinary urgency, blood in her urine or stool, syncope or a near syncopal episode, recent trauma or falls, bowel incontinence, bladder incontinence, or any other complaints at this time. Onset (ago): day(s) (1) Relieving factors: none Exacerbating factors: none Associated symptoms: rash Treatments prior to arrival: other (Benadryl - symptoms persist) Related Data Home Medications ?Medication ?Instructions ?Recorded ?Confirmed pantoprazole 40 mg tablet,delayed 40 mg PO DAILY 08/04/23 10/13/23 release spironolactone 100 mg tablet 100 mg PO DAILY 10/27/23 Previous Rx's ?Medication ?Instructions ?Recorded prednisone 20 mg tablet 20 mg PO DAILY 7 days #7 tabs 10/05/24 Allergies Allergy/AdvReac Type Severity Reaction Status Date / Time No Known Allergies Allergy Verified 10/05/24 07:53 [No Known Allergies*] Review of Systems Constitutional: Constitutional: Reports no additional constitutional complaints, Denies chills, Denies fever(s) and Denies night sweats Eyes: Eyes: Reports no additional eye complaints, Denies blurry vision, Denies change in vision, Denies diplopia, Denies eye discharge, Denies loss of vision and Denies eye pain ENT: Denies dizziness Comments: throat itching sensation Cardiovascular: Cardiovascular: Reports no additional cardiovascular complaints, Denies chest pain, Denies lightheadedness, Denies Loss of Consciousness and Denies dyspnea Respiratory: Respiratory: Reports no additional respiratory complaints and Denies dyspnea Gastrointestinal: Gastrointestinal: Reports no additional gastrointestinal complaints, Denies abdominal pain, Denies melena, Denies hematochezia, Denies change in bowel habits and Denies change in stool character Genitourinary: Genitourinary: Denies hematuria, Denies urinary frequency, Denies dysuria, Denies urinary incontinence, Denies urinary hesitancy and Denies urinary urgency Musculoskeletal: Musculoskeletal: Reports no additional musculoskeletal co mplaints, Denies numbness and Denies tingling Integumentary/Breasts: Skin/Breast: Reports rash Neurologic: Denies dizziness, Denies loss of vision, Denies numbness and Denies tingling Psychiatric: Psychiatric: Reports no additional psychiatric complaints Endocrine: Endocrine: Reports no additional endocrine complaints Hematologic/Lymphatic: Hematologic/Lymphatic: Reports no additional hematologic/lymphatic complaints Allergic/Immunologic: Allergic/Immunologic: Reports no additional allergic/immunologic complaints [facility] Past Medical History Attestation statement: The following information was validated with the patient. Source: old records reviewed and nursing notes reviewed Medical History Eroded bladder suspension mesh Healthy adult Surgical History History of esophagogastroduodenoscopy (EGD) History of bilateral tubal ligation S/P cholecystectomy Family History Family History Maternal Grandmother Breast cancer Paternal Aunt Breast cancer Social History Social History Alcohol intake: never Patient Tobacco Use Status: Never used Tobacco Smoked in Last 30 Days: No Use of substances other than those prescribed or required for medical reasons: No Advance Directives: No Advance Directives Information Provided: Yes Physical Exam ED Vital Signs: Vital Signs - 24 hr 10/05/24 07:50 10/05/24 10:02 10/05/24 11:04 Temperature 97.8 F 97.8 F 97.8 F Pulse Rate 82 69 69 Respiratory Rate 16 16 16 Blood Pressure 143/64 H 138/57 L 138/57 L Pulse Oximetry 99 99 99 Oxygen Delivery Method Room Air Room Air Room Air BMI result Body Mass Index 38.1 Const General: cooperative, no acute distress, alert and awake Nutritional Appearance: well nourished Orientation/consciousness: patient oriented x3 Limitations: no limitations HENMT Head: Yes normal to inspection and Yes atraumatic Ears: hearing grossly normal bilaterally and external ears normal General nose exam: Normal external nose present, no nasal discharge noted and no epistaxis Face and sinus: Yes normal facial exam, No abrasion and No laceration Mouth: Normal oral and palatal mucosa present, no drooling and no muffled voice Eyes General: appearance normal, both eyes and all related structures Periorbital: periorbital findings normal Eyelids: Yes eyelids normal Conjunctivae: conjunctivae normal Pupils: Equal, round and reactive pupils present EOM: EOMs intact bilaterally Neck Neck: Yes normal visual inspection, Yes full ROM and Yes no lymphadenopathy Chest Chest palpation & inspection: normal inspection of the chest Resp Effort & Inspection: normal respiratory effort and able to speak in complete sentences GI Inspection: Yes normal to inspection Neuro General: patient oriented x3, moves all extremities and CN's II-XI intact bilaterally Cranial nerves: Yes Equal, round and reactive pupils present Cognition (Neuro): normal cognition Extrem Other: mild uriticaria present to the bilateral upper extremities General: Yes full ROM and Yes capillary refill normal Psych Appearance: grossly normal Mental Status: mental status grossly normal Affect: normal affect Attitude: cooperative Thought process: Normal thought process present Thought content: Normal thought content present Insight: Good insight present (Psych) Medications Administered Discontinued Medications Generic Name Dose Route Start Last Admin Trade Name Conchita PRN Reason Stop Dose Admin Methylprednisolone Sodium Succinate 60 mg 10/05/24 10:34 10/05/24 10:57 Methylprednisolone Sod Succ 125 Mg/2 Ml Vial IM 10/05/24 10:35 60 mg ONCE ONE Administration Medical Decision Making Medical Decision Making [facility] Narrative: Patient is a 44 year old assigned female at with a history of migraines, HTN, bipolar disorder, and GERD presenting to the emergency department today with a suspected allergic reaction. Patient's physical exam was as noted in the physical exam portion of this note and most consistent with an allergic reaction. I explained my physical exam findings as well as all test results to the patient. I answered all questions asked by the patient. I stressed the importance of the patient taking her medication as directed (either prescribed or as the over the counter packaging recommends). I stressed the importance of the patient following up with her primary care provider and an automotive technician. I stressed the importance of the patient returning to the emergency department immediately if her symptoms were to worsen or if she were to develop any dizziness, shortness of breath, difficulty breathing, chest pain, blurry vision, loss of vision, nausea, vomiting, abdominal pain, fever, chills, back pain, or any other complaints. Patient verbalized agreement and understanding with this treatment plan and discharge. Differential Diagnosis Differential Diagnoses: The differential diagnosis associated with the presentation includes Allergic reaction Admission/Observation Consideration of admission/observation: Escalation of care including admission/observation considered Patient would have been admitted to the hospital had her clinical presentation warranted hospital admission. Discharge Plan Discharge Clinical Impression: Allergic reaction Patient Disposition: Home, Self-Care Instructions: General Allergic Reaction (ED) Additional Instructions: Follow up with your primary care provider and an automotive technician. Return to the emergency department immediately if your symptoms worsen or if you develop any numbness, tingling, dizziness, shortness of breath, difficulty breathing, chest pain, blurry vision, loss of vision, nausea, vomiting, abdominal pain, fever, chills, back pain, or any other complaints. Please see the information below about our Patient Portal. If you are not yet enrolled in the [facility] Patient Portal, you will receive an enrollment email invitation following your visit to any [facility] care setting. You may also self-enroll in the Patient Portal by visiting our website: [email or web address] The following information is required to access the Patient Portal: - Your [facility] Medical Record Number - Your personal home email address (must match what is in your electronic medical record, Registration staff can assist with this) - Name - Date of Capabilities of the Patient Portal: - Message some providers - View upcoming appointments - Access your health summary, medical history, and visit history - View current conditions and allergies - View procedure and lab results - View your medications, including guidelines, side effects, and precautions - Complete pre-appointment questionnaires requested by your provider - Ready summary reports of your office visits and procedures To access the Patient Portal Mobile [employer], follow these directions: - Search [employer] in the [employer]rina Store or Google Play Store - Download the [employer]rina - Search for [facility] - Enter your login/password Prescriptions: New prednisone 20 mg tablet 20 mg PO DAILY 7 Days Qty: 7 0RF No Action spironolactone 100 mg tablet 100 mg PO DAILY pantoprazole 40 mg tablet,delayed release (DR/EC) 40 mg PO DAILY Referrals: Radha Moreno FNP [Primary Care Provider] - Interventions: ED Discharge Assessment Last Done: 10/05/24 11:04 Discharge Date/Time: 10/05/24 11:05 Print Language: Welsh
[2024-10-05 10:02] VITALS: BP 138/57; PULSE 69; RESP 16; TEMP 36.6; O2SAT 99
[2024-10-05] MEDS: methylPREDNISolone Sod Succ 125 MG/2 ML VIAL 60 MG IM (10:57)
[2024-10-05 11:04] VITALS: BP 138/57; PULSE 69; RESP 16; TEMP 36.6; O2SAT 99
--- OUTSIDE RECORDS SUMMARY | 2024-10-05 11:26 | XMS_ITS | Encounter Summary ---
Author Organization [employer] Address [address] [place] [address] Care Team Providers Care Rope Cleaner Name Role Phone [facility] Primary Care Provider Reason for Visit * Reason Onset Date Comments Prior Authorization 09/24/2024 RIN Miller t: [place] Encounter Details Date Type Department Care Team ([facility] Contact Info) Description 09/24/2024 Telephone [facility] [address] [place] [address] [facility] [address] [place] [address] Prior Authorization (RIN IZQUIERDO Request: Zepbound) Social History Tobacco Use Types Packs/Day Years Used Date Smoking Tobacco: Never Smokeless Tobacco: Never Alcohol Use Standard Drinks/Week Comments Never 0 (1 standard drink = 0.6 oz pur e alcohol) Depression Answer Date Recorded Patient Health Questionnaire-9 Score 0 09/21/2024 Patient Health Questionnaire-9 Score 0 09/21/2024 Last PHQ-9: Questionnaire Data Not on file 0 09/21/2024 Housing Stability Answer Date Recorded What is your housing situation today? I have wyatt conrad 09/12/[address] you li ve. Do you have problems with any of the following? None of the above 09/12/2024 Food Insecurity Answer Date Recorded Within the past 12 months, y ou worried that your food would run out before you got money to buy more: Never True 09/12/2024 Within the past 12 months,th e food you bought just didn't last and you didn't have enough money to get more: Never True Transportation Answer Date Recorded In the past 12 months, has l ack of transportation kept you from medical appts, meetings, work or from getting things needed for daily living? No 09/12/2024 Utilities Answer Date Recorded In the past 12 months, has t he electric, gas, oil or water company threatened to shut off services in your home? No 09/12/2024 Depression Answer Date Recorded Patient Health Questionnaire-2 Score 0 09/21/2024 Internet Access Answer Date Recorded Internet Access Q1 Yes 09/12/2024 Internet Access Q2 Not on file 09/12/2024 Comments No Sex and Gender Information Value Date Recorded Sex Assigned at Female 04/26/2022 10:18 AM EDT Legal Sex Female 10:18 AM EDT Gender Identity Female 04/26/2022 10:18 AM EDT Sexual Orientation Straight 04/26/2022 10 :18 AM EDT documented as of this encounter Miscellaneous Notes * Telephone Encounter - Angelic Jeff MA - 10/02/2024 8:24 AM EDT Received signed forms below from PCP, I faxed them to insurance and decision is pending. I sent forms to scan. * Telephone Encounter - Mamta Vang - 09/24/2024 11:08 AM EDT PA for Zepbound from [employer] placed on PCP desk for signature. * Telephone Encounter - Mamta Vang - 09/24/2024 11:07 AM EDT ----- Message from [facility] sent at 09/23/2024 2:28 PM EDT ----- Please initiate PA for Zepbound. Thank you! documented in this encounter Plan of Treatment Upcoming Encounters Date Type Department Care Team (Late st Contact Info) Description 12/14/2024 2:00 PM EDT Procedure Visit [facility] [address] [place] [address] Radha Moreno FNP [address] [place] [address] documented as of this encounter Visit Diagnoses Not on filedocumented in this encounter Additional Health Concerns Assessment Noted Time PHQ-9 Depression Total Score: 0 09/22/19 25 1:12 PM EDT documented as of this encounter Care Teams Rope Cleaner Relationship Specialty Start Date End Date Radha Moreno FNP [address] [place] [address] PCP - General Family Medicine 04/13/22 documented as of this encounter
--- OUTSIDE RECORDS SUMMARY | 2024-10-05 11:26 | XMS_ITS | Encounter Summary ---
Author Organization [employer] Address [address] [place] [address] Care Team Providers Care Jewelry Sorter Name Role Phone [facility] Primary Care Provider [phone] Reason for Visit * Reason Onset Date Comments Med Refill 05/18/2024 Encounter Details Date Type Department Care Team ([facility] st Contact Info) Description 05/18/2024 Refill [facility] [address] [place] [address] [facility] [address] [place] [address] Social History Tobacco Use Types Packs/Day Years Used Date Smoking Tobacco: Never Smokeless Tobacco: Never Alcohol Use Standard Drinks/Week Comments Never 0 (1 standard drink = 0.6 oz pur e alcohol) Depression Answer Date Recorded Patient Health Questionnaire-9 Score 0 04/29/2023 Patient Health Questionnaire-9 Score 0 04/29/2023 Last PHQ-9: Questionnaire Data Not on file 1 06/29/2022 Housing Stability Answer Date Recorded What is your housing situation today? I have wyatt conrad 04/13/[address] you li ve. Do you have problems with any of the following? None of the above 04/13/2023 Food Insecurity Answer Date Recorded Within the past 12 months, y ou worried that your food would run out before you got money to buy more: Never True 04/13/2023 Within the past 12 months,th e food you bought just didn't last and you didn't have enough money to get more: Never True Transportation Answer Date Recorded In the past 12 months, has l ack of transportation kept you from medical appts, meetings, work or from getting things needed for daily living? No 04/13/2023 Utilities Answer Date Recorded In the past 12 months, has t he electric, gas, oil or water company threatened to shut off services in your home? No 04/13/2023 Depression Answer Date Recorded Patient Health Questionnaire-2 Score 0 01/06/2024 Comments No Sex and Gender Information Value Date Recorded Sex Assigned at Female 04/26/2022 10:18 AM EDT Legal Sex Female 10:18 AM EDT Gender Identity Female 04/26/2022 10:18 AM EDT Sexual Orientation Straight 04/26/2022 10 :18 AM EDT documented as of this encounter Plan of Treatment Upcoming Encounters Date Type Department Care Team (Late st Contact Info) Description 12/14/2024 2:00 PM EDT Procedure Visit [facility] [address] [place] [address] Radha Moreno FNP [address] [place] [address] documented as of this encounter Visit Diagnoses Not on filedocumented in this encounter Additional Health Concerns Assessment Noted Time PHQ-9 Depression Total Score: 0 04/29/20 23 2:41 PM EDT documented as of this encounter Care Teams Jewelry Sorter Relationship Specialty Start Date End Date Radha Moreno FNP [address] [place] [address] PCP - General Family Medicine 04/13/22 documented as of this encounter
--- OUTSIDE RECORDS SUMMARY | 2024-10-05 11:26 | XMS_ITS | Encounter Summary ---
Author Organization [employer] Address [address] [facility] [address] [facility] [address] [place] [address] Care Team Providers Care Windshield Technician Name Role Phone [facility] Primary Care Provider [phone] Reason for Visit * Reason Onset Date Comments Med Refill 10/03/2024 Encounter Details Date Type Department Care Team (Late st Contact Info) Description 10/03/2024 Refill [facility] [address] [place] [address] [facility] [address] [place] [address] Social History Tobacco Use Types Packs/Day Years [...] Description 12/14/2024 2:00 PM EDT Procedure Visit [facility] [address] [place] [address] [facility] [address] [place] [address] documented as of this encounter Visit Diagnoses Not on filedocumented in this encounter Additional Health Concerns Assessment Noted Time PHQ-9 Depression Total Score: 0 09/22/19 25 1:12 PM EDT documented as of this encounter Care Teams Windshield Technician Relationship Specialty Start Date End Date Radha Moreno FNP [address] [place] [address] PCP - General Family Medicine 04/13/22 documented as of this encounter
--- OUTSIDE RECORDS SUMMARY | 2024-10-05 11:26 | XMS_ITS | Clinical Summary ---
Author Organization [employer] Address [address] [facility] 7t [place] [address] Care Team Providers Care Animal Attendant Name Role Phone Radha Moreno CHEMICAL PLANT MANAGER Primary Care Provider [phone] Allergies No known active allergies Medications spironolactone (Aldactone) 100 MG tablet TAKE 1 TABLET BY MOUTH EVERY DAY 90 tablet 1 023 Active pantoprazole (ProtoNix) 40 MG EC tablet TAKE 1 TABLET BY MOUTH EVERY DAY 90 tablet 2 024 Active Tirzepatide-We ight Management (Zepbound) 2.5 MG/0.5ML solution auto-injector Inject 0.5 mL (2.5 mg) under the skin 1 (one) time per week. 2 mL 11 025 2025 Active chlorhexidine (Peridex) 0.12 % solution POUR 15ML INTO CUP RINSE BY MOUTH FOR 1 MINUTE THEN SPIT OUT DO NOT SWALLOW 025 Active Blood Pressure kit 2024 Discontinued(T herapy completed) cyclobenzaprin e (Flexeril) 10 MG tablet Take 5 mg by mouth if needed in the morning, at noon, and at bedtime for muscle spasms. 2024 Discontinued butalbital-raymon taminophen-caf feine (Fioricet) 50-300-40 MG capsule take 1 capsule by oral route every 8 hours as needed not to exceed 6 capsules per 24hrs as needed for headache 020 2024 Discontinued topiramate (Topamax) 100 MG tabletIndicati ons:Class 2 severe obesity due to excess calories with serious comorbidity and body mass index (BMI) of 38.0 to 38.9 in adult ([facility]) Take 1 tablet (100 mg) by mouth before evening meal. 90 tablet 2 023 2024 Discontinued phentermine 8 MG tabletIndicati ons:Class 2 severe obesity due to excess calories with serious comorbidity and body mass index (BMI) of 38.0 to 38.9 in adult ([facility]) TAKE 1 TABLET BY MOUTH THREE TIMES DAILY 30 MINUTES BEFORE MEALS 90 tablet 1 024 2024 Discontinued ciclopirox (Penlac) 8 % solutionIndica tions:Onychomy cosis Apply topically at bedtime. 6 mL 024 2024 Discontinued naproxen (Naprosyn) 500 MG tabletIndicati ons:Chronic pain of both feet Take 1 tablet by oral route twice daily as needed for moderate pain 30 tablet 1 024 2024 Discontinued Diclofenac Sodium 1 % gelIndications :Chronic pain of both feet Apply topically to affected areas twice daily 150 g 1 024 2024 Discontinued capsaicin (Zostrix) 0.025 % creamIndicatio ns:Chronic pain of both feet Apply topically 2 times daily. 56.6 g 1 024 2024 Discontinued Bacillus Coagulans-Inul in (Probiotic) 1-250 BILLION-MG capsule Take 1 tab BID 90 capsule 3 024 2024 Discontinued Semaglutide-We ight Management (Wegovy) 2.4 MG/0.75ML solution auto-injector INJECT ONE PEN (=2.4 MG) SUBCUTANEOUSLY ONCE A WEEK 3 mL 3 024 2024 Discontinued Active Problems Problem Noted Date Diagnosed Date Healthcare maintenance 07/19/2022 Overview (10/13/2023): Mammo: 11/2021- Birads 3, 05/2023--Birads 2; repeat 1 year Pap: PAP NIL/HPV neg 10/2018, follows by OMAYRA Marcelino C-scope: Routine age 44 BMD: Routine age 64 HCV Screen: ---- HIV Screen: ---- A1c 5.6 05/2022 Hirsutism 07/13/2022 Overview (07/13/2022): ?? Negative prior PCOS work up Elevated liver enzymes 07/13/2022 Overview (07/13/2022): ?? Likely s/t suspected NAFLD Dyspepsia 06/14/2022 Overview (07/13/2022): ?? Pantoprazole 40mg ?? Referred to GI for endoscopy 04/2022 Assessment & Plan (06/14/2022 10:22 PM EST): HISTORY - Sx presets for years - Managed with pantoprazole - Referred to GI 05/25/2022 for endoscopy Female stress incontinence 05/31/2022 Abnormal mammogram 06/04/2021 Overview (07/19/2022): 06/03/21: BIRADS 3 Probably Benign, 6 month follow up 11/2021: BIRADS 3 Probably benign, 12 month follow up Essential hypertension 11/08/2018 Migraine with aura 04/04/2015 Sleep apnea 04/04/2015 Assessment & Plan (06/14/2022 10:16 PM EST): Home sleep study ordered at TP visit 04/2022 Mood disorder 10/19/2013 Impaired fasting glucose 02/16/2013 Vitamin D deficiency 02/16/2013 Obesity 03/21/2012 Resolved Problems Problem Noted Date Diagnosed Date Resolved Date Kidney stone 05/31/2022 06/14/2022 Headache 12/08/2011 07/19/2022 Encounters Date Type Department Care Team Description 10/03/2024 Refill [facility] [address] [place] [address] Radha Moreno FNP 09/24/2024 Telephone [facility] [address] [place] [address] Radha Moreno FNP Prior Authorization ( FELECIA Request: Zepbvel) 09/21/2024 1:15 PM EDT Office Visit [facility] [address] [place] [address] Radha Moreno FNP Class 2 severe obesity due to excess calories with serious comorbidity and body mass index (BMI) of 38.0 to 38.9 in adult ([facility]) (Primary Dx); Dystrophic nail; Screening for colon cancer; Encounter for screening mammogram for breast cancer; Dietary counseling; Exercise counseling 09/21/2024 Travel 09/14/2024 3:00 PM EDT Office Visit [facility] [address] [place] [address] Xander, Shavon, OD White without pressure of peripheral retina of both eyes (Primary Dx); Meibomian gland disease of both eyes, unspecified eyelid; Regular astigmatism of both eyes 09/14/2024 Travel 09/12/2024 Patient Outreach [facility] [address] [place] [address] Radha Moreno FNP Pre-visit Planning (SDOH screening negative and tobacco screening negative) 09/07/2024 Population Health Risk Score [facility] () Department [address] [place] [id number] Provider, Population Health Generic 07/27/2024 Telephone [facility] [address] [place] [address] Radha Moreno FNP No Show from Last 3 Months Immunizations Name Administration Dates Next Due Influenza injectable quadrivalent preservative f ree 08/10/2022,03/31/2022 Influenza, Split (incl. purified surface antigen ) 05/29/2013,04/14/2012 Moderna Covid-19 Vaccine 12+ 12/18/2020,11/21/19 21 Pfizer Covid-19 Vaccine 12+ Bivalent 03/31/2022 Tdap 08/10/2022,04/14/2012 Family History Medical History Relation Name Comments Substance Abuse Father Mental illness Maternal Grandfather Breast cancer Maternal Grandmother Substance Abuse Mother Heart disease Paternal Grandmother Asthma Sister Diabetes Sister Hypertension Sister Kidney disease Sister Relation Name Status Comments Father Maternal Grandfather Maternal Grandmother Mother Paternal Grandmother Sister Social History Tobacco Use Types Packs/Day Years Used Date Smoking Tobacco: Never Smokeless Tobacco: Never Tobacco Cessation:Counseling Given: Not Answered Alcohol Use Standard Drinks/Week Comments Never 0 [...] Orientation Straight 04/26/2022 10 :18 AM EDT Last Filed Vital Signs Vital Sign Reading Time Taken Comments Blood Pressure 124/80 09/21/2024 1:22 PM EDT Pulse 78 09/21/2024 1:07 PM EDT Temperature 36.3 ??C (97.3 ??F) 09/21/2024 1:07 PM ED T Respiratory Rate 18 09/21/2024 1:07 PM EDT Oxygen Saturation 99% 09/21/2024 1:07 PM EDT Inhaled Oxygen Concentration - - Weight 95.5 kg (210 lb 9.6 oz) 09/21/2024 1:07 P M EDT Height 157.5 cm (5' 2 ) 09/21/2024 1:07 PM EDT Body Mass Index 38.52 09/21/2024 1:07 PM EDT Plan of Treatment Upcoming Encounters Date Type Department Care Team (Late st Contact Info) Description 12/14/2024 2:00 PM EDT Procedure Visit [facility] [address] [place] [address] [place], [place], [facility] [address] [place] [address] Health Maintenance Due Date Last Done Comments CT Colonography 1979 Colonoscopy 1979 Colorectal Cancer Screening 1979 FIT DNA/Cologuard 1979 FIT 1979 FOBT 1979 Sigmoidoscopy 1979 Alcohol/Substance Use Screening 1991 Family Planning (PISQ) 1994 Cervical Cancer Screening 11/23/2023 HPV/Cotest 11/23/2023 11/22/2018 Pap Smear 11/23/2023 COVID-19 Vaccine ( season) 2024 03/31/2022, 12/18/2020, 11/20/2020 Influenza Vaccine (#1) 2024 , 03/31/2022, 05/14/2021, Additional history exists Mammogram 06/16/2024 06/16/2023, 06/0 01/2022, 11/25/2021, Additional history exists SDOH Screening 09/12/2025 09/12/2024 Depression Screening 09/21/2025 09/21/2024, 09/22/19 Tobacco Screening 09/24/2025 09/24/2024 Lipid Panel 06/11/2027 06/11/2022, 11/08/2020, 03/25/2020 Zoster Vaccines (1 of 2) 2029 DTaP/Tdap/Td Vaccines (3 - Td or Tdap) 08/10/2032 08/10/2022, 04/14/2012 RSV Patients and Patients Aged 60 years or older (1 - 1-dose 75+ series) 2054 Hepatitis C Screening Completed 07/02/2022 HIB Vaccines Aged Out No longer eligi ble based on patient's age to complete this topic HIV Screening Discontinued HPV Vaccines Aged Out No longer eligi ble based on patient's age to complete this topic Hepatitis A Vaccines Aged Out No long er eligible based on patient's age to complete this topic Hepatitis B Vaccines Discontinued IPV Vaccines Aged Out No longer eligi ble based on patient's age to complete this topic Meningococcal Vaccine Aged Out No molina daja eligible based on patient's age to complete this topic Pneumococcal Vaccine: Pediatrics (0 to 5 Years) and At-Risk Patients (6 to 49) Years) Discontinued RSV under 20 months Aged Out No longe r eligible based on patient's age to complete this topic Rotavirus Vaccines Aged Out No longer eligible based on patient's age to complete this topic Procedures Procedure Name Priority Date/Time Associated Diagnosis Comments BI MAMMOGRAM DIAGNOSTIC TOMOSYNTHESIS BILATERAL Routine 06/16/2023 2:30 PM EST HEPATITIS C AB W/REFL TO HCV RNA, QN, PCR Routine 07/02/2022 8:07 AM EST Elevated alanine aminotransferase (ALT) level LIPID PANEL, STANDARD Routine 06/11/2022 8:41 AM EST Class 2 obesity without serious comorbidity with body mass index (BMI) of 39.0 to 39.9 in adult, unspecified obesity type EMILY HISTORICAL HPV MRNA E6/E7 Routine 11/22/2018 8:50 AM EDT from Last 3 Months or Most Recently Relevant to Health Maintenance Results * BI Mammogram Diagnostic Tomosynthesis Bilateral (06/16/2023 2:30 PM EST) Anatomical Region Laterality Modality Breast Bilateral Mammography 06/16/2023 2:30 PM EST Narrative 06/16/2023 2:56 PM EST ? [facility] ? [address] ?[place] [address] ? Mammography Report ? Signed ? Patient: Oly,Nilam ?MR#: [id number] ?? 6 ? : 1980 ?Acct:[id number] ? Age/Sex: 43 / F ?ADM Date: 06/16/23 ? Loc: HO.MAMMO ? Attending Dr: Radha Moreno CHEMICAL PLANT MANAGER ? Ordering Physician: Radha Moreno CHEMICAL PLANT MANAGER ?Results: 2Beni ?? gn Findings ? Date of Service: 06/16/23 ?Follow Up: 1 Year From Orig ?? inal Mammogram ? Procedure(s): MM tomosynthesis diagnostic BI ?? Accession Number(s): [id number] ? cc: Radha Moreno CHEMICAL PLANT MANAGER ? EXAMINATION: ?? MM DIAGNOSTIC DIGITAL BREAST TOMOSYNTHESIS, BILATERAL ? CLINICAL INFORMATION: ? 6 month Follow-up bilateral breast calcifications (followed since ?? 12/02/2020), and complaining of global left breast pain. 43-year-old ?? female. ? COMPARISON: ?? Mammography: 12/02/2021, 06/03/2021, 12/02/2020, 11/18/2020. ? TECHNIQUE: ?? Digital breast tomosynthesis is performed in both the craniocaudal and ?? mediolateral oblique views along with computer-aided detection (CAD). ?? Synthesized 2D images are generated from the tomosynthesis. In addition ?? to standard views, spot 2-D magnification views of both breasts in the ?? CC and ML projections were performed. ? FINDINGS: ?? The breasts are heterogeneously dense, which may obscure small masses ?? (ACR BI-RADS breast composition Category c). ? There are numerous bilateral loosely grouped calcifications in both ?? breasts, the majority of which layer on the 90 degrees mediolateral ?? view, diagnostic for milk of calcium. These appear stable from ?? 12/02/2020, and are benign. No aggressive changes. ? There are no suspicious masses, suspicious grouped calcifications, or ?? areas of architectural distortion in either breast. The somewhat ?? nodular parenchymal pattern is stable from prior exams. ? MM/MM tomosynthesis diagnostic BI ?? IMPRESSION: ?? There are no significant changes from prior study. Benign findings. ? No findings suspicious for malignancy. ? Recommend the patient resume routine annual screening. ? ASSESSMENT: ? BI-RADS BI-RADS 2 - Benign Findings ? RECOMMENDATION: ?? 1 year F/U ? Results were provided to the patient at time of visit by the ?? technologist. ? This patient's information was entered into a reminder system with a ?? target due date for their next mammogram. ? Dictated By: ?Harshil Blake MD ? Signed By: ?<Electronically signed by Harshil Blake MD in OV> ?06/16/23 1452 ? DD/ 1430 ? TD/TT: ? Hedge Trimmer: ? Procedure Note Tomas Kee - 06/17/2023 [facility] [address] [place] [address] [place] [address] Mammography Report Signed Patient: David Aldridge#: [id number] 6 : 1980Acct:[id number] Age/Sex: 43 / FADM Date: 06/16/23 Loc: MOIZ Attending Dr: Radha Moreno CHEMICAL PLANT MANAGER Ordering Physician: Radha Moreno FNPResults: 2Beni gn Findings Date of Service: 06/16/23Follow Up: 1 Year From Orig inal Mammogram Procedure(s): MM tomosynthesis diagnostic BI Accession Number(s): [id number] cc: [facility] EXAMINATION: MM DIAGNOSTIC DIGITAL BREAST TOMOSYNTHESIS, BILATERAL CLINICAL INFORMATION: 6 month Follow-up bilateral breast calcifications (followed since 12/02/2020), and complaining of global left breast pain. 43-year-old female. COMPARISON: Mammography: 12/02/2021, 06/03/2021, 12/02/2020, 11/18/2020. TECHNIQUE: Digital breast tomosynthesis is performed in both the craniocaudal and mediolateral oblique views along with computer-aided detection (CAD). Synthesized 2D images are generated from the tomosynthesis. In addition to standard views, spot 2-D magnification views of both breasts in the CC and ML projections were performed. FINDINGS: The breasts are heterogeneously dense, which may obscure small masses (ACR BI-RADS breast composition Category c). There are numerous bilateral loosely grouped calcifications in both breasts, the majority of which layer on the 90 degrees mediolateral view, diagnostic for milk of calcium. These appear stable from 12/02/2020, and are benign. No aggressive changes. There are no suspicious masses, suspicious grouped calcifications, or areas of architectural distortion in either breast. The somewhat nodular parenchymal pattern is stable from prior exams. MM/MM tomosynthesis diagnostic BI IMPRESSION: There are no significant changes from prior study. Benign findings. No findings suspicious for malignancy. Recommend the patient resume routine annual screening. ASSESSMENT: BI-RADS BI-RADS 2 - Benign Findings RECOMMENDATION: 1 year F/U Results were provided to the patient at time of visit by the technologist. This patient's information was entered into a reminder system with a target due date for their next mammogram. Dictated By: Harshil Blake MD Signed By: <Electronically signed by Harshil Blake MD in OV> 06/16/23 1452 DD/ 1430 TD/TT: Hedge Trimmer: [facility] CHEMICAL PLANT MANAGER IMG BI PROCEDURES Edited Resu lt - Final * Hepatitis C Antibody with Reflex to HCV, RNA, Quantitative, Real-Time PCR (07/02/2022 8:07 AM EST) Hepatitis C Antibody NON-REACT PREET NON-REACT PREET [email or web address] [place] [facility] Index <0.02 <1.00 [email or web address] [place] [facility] Comment: HCV antibody was non-reactive. There is no laboratory evidence of HCV infection. In most cases, no further action is required. However, if recent HCV exposure is suspected, a test for HCV RNA (test code 12653) is suggested. For additional information please refer to http://MobStac.Azaleos/faq/KZR69h3 (This link is being provided for informational/ educational purposes only.) Blood Venous blood specimen / Unknown 07/02/2022 8:07 AM EST 07/02/2022 8:08 AM EST Narrative [facility] - 07/02/2022 9:51 PM EST FASTING:YES FASTING: YES [facility] LAB BLOOD ORDERABLES Final Re sult [facility] [address], [place] [address] [email or web address] [place] [facility] [address] [facility], ([address]) [place] [address] * (ABNORMAL) Lipid Panel, Standard (06/11/2022 8:41 AM EST) Cholesterol, Total 208(H) <200 mg/dL [email or web address] [place] [facility] HDL Cholesterol 44(L) > OR = 50 mg/dL [email or web address] [place] [facility] Triglycerides 182(H) <150 mg/dL [email or web address] [place] [facility] LDL Cholesterol 132(H) mg/dL (calc) [email or web address] [place] [facility] Comment: Reference range: <100 Desirable range <100 mg/dL for primary prevention; ?? <70 mg/dL for patients with CHD or diabetic patients with > or = 2 CHD risk factors. LDL-C is now calculated using the Edmond calculation, which is a validated novel method providing better accuracy than the Friedewald equation in the estimation of LDL-C. Lai RIVER et al. DAYANARA. 2013;310(19): 3969-7530 (http://education.DesignMedix/faq/LGT525) Chol/HDLC Ratio 4.7 <5.0 (calc) [email or web address] [place] [facility] Non-HDL Cholesterol 164(H) <130 mg/dL (calc) [email or web address] [place] [facility] Comment: For patients with diabetes plus 1 major ASCVD risk factor, treating to a non-HDL-C goal of <100 mg/dL (LDL-C of <70 mg/dL) is considered a therapeutic option. Blood Venous blood specimen / Unknown 06/11/2022 8:41 AM EST 06/11/2022 8:41 AM EST [facility] LAB BLOOD ORDERABLES Final Re sult [address], [place] [address] [email or web address] [place] [facility] [address] [facility], ([address]) [place] [address] * HPV mRNA E6/E7 (11/22/2018 8:50 AM EDT) HPV mRNA E6/E7 Not Detected NOT DETECTED [facility] Comment: This test was performed using the APTIMA(R) HPV Assay ([employer] This assay detects E6/E7 viral messenger RNA (mRNA) from 14 high-risk HPV types (16,18,31,33,35,39,45,51, 52,56,58,59,66,68). For additional information please refer to: http://education.MuleSoft.McLemore Investments/faq/KPH454z8 (This link is being provided for informational/ educational purposes only.) The analytical performance characteristics of this assay have been determined by [employer] [place], [place]. The modifications have not been cleared or approved by the FDA. This assay has been validated pursuant to the CLIA regulations and is used for clinical purposes. Test Performed by [facility] [employer], [address] [place] [address] Elmer Lloyd M.D., Ph.D., Director of [employer] , CLIA [id number] Please note: ??Effective 03/08/2016, HPV testing will be performed using [employer]'s APTIMA test which targets mRNA. Detecting mRNA instead of DNA, as in older methods, offers significant improvements in specificity. 11/22/2018 8:50 AM EDT us Ramonita Marcelino CNM HISTORICAL/NON ORDERABLE LABS Final Result [facility] Anywhere [address] from Last 3 Months or Most Recently Relevant to Health Maintenance Insurance [employer] C[employer] Care Teams Animal Attendant Relationship Specialty Start Date End Date Radha Moreno FNP [address] [place] [id number] PCP - General Family Medicine 04/13/22
--- OUTSIDE RECORDS SUMMARY | 2024-10-05 11:26 | XMS_ITS | Clinical Summary ---
Author Organization [facility] Address [address] [place] [address] Phone Care Team Providers Care Inventory Analyst Name Role Phone Glynn Gilbert MD Primary Care Provider Unav ailable Allergies No known active allergies Medications spironolactone (ALDACTONE) 100 MG tablet Take 100 mg by mouth 1 (one) time each day 2 Active Phentermine HCl (Lomaira) 8 MG tablet Take by mouth Active pantoprazole (PROTONIX) 40 MG EC tablet Take 40 mg by mouth 1 (one) time each day before breakfast Do not crush, chew, or split. Active Active Problems Problem Noted Date Diagnosed Date Essential hypertension 10/01/2021 Vitamin D deficiency 10/01/2021 Family History Medical History Relation Comments Hypertension Sibling 1 Diabetes Sibling 2 Relation Status Comments Father Mother Alive Sibling 1 Sibling 2 Social History Tobacco Use Types Packs/Day Years Used Date Smoking Tobacco: Never Smokeless Tobacco: Never Alcohol Use Standard Drinks/Week Comments No 0 (1 standard drink = 0.6 oz pur e alcohol) Comments Unknown Sex and Gender Information Value Date Recorded Sex Assigned at Not on file Legal Sex Female 4:54 PM EST Gender Identity Not on file Sexual Orientation Not on file Last Filed Vital Signs Vital Sign Reading Time Taken Comments Blood Pressure 120/80 10/28/2022 2:58 PM EDT Pulse 93 10/28/2022 2:58 PM EDT Temperature - - Respiratory Rate - - Oxygen Saturation 98% 10/28/2022 2:58 PM EDT Inhaled Oxygen Concentration - - Weight 95.3 kg (210 lb) 10/28/2022 2:58 PM EDT Height 157.5 cm (5' 2 ) 10/28/2022 2:58 PM EDT Body Mass Index 38.41 10/28/2022 2:58 PM EDT Plan of Treatment Health Maintenance Due Date Last Done Comments Pneumococcal Vaccine: Peds ( 0 to 5 Years) and At-Risk Patients (6 to 49 Years) (1 of 2 - PCV) 1985 Hepatitis B Vaccine (1 of 3 - 19+ 3-dose series) 1998 Influenza Vaccine (Season Ended) 2025 08/10/2022, 03/31/2022, 05/29/2013, Additional history exists Insurance Medicaid [place] Care Teams Inventory Analyst Relationship Specialty Start Date End Date Glynn Gilbert MD PCP - General 07/07/20
--- OUTSIDE RECORDS SUMMARY | 2024-10-05 11:26 | XMS_ITS | Encounter Summary ---
Author Organization [employer] Address [address] [facility] 7[address] [place] [address] Care Team Providers Care Sign Manufacturer Name Role Phone [facility] Primary Care Provider [phone] Reason for Visit * Reason Onset Date Comments Med Refill 10/28/2023 Encounter Details Date Type Department Care Team (Late st Contact Info) Description 10/28/2023 Refill [facility] [address] [place] [address] [facility] [address] [place] [address] Class 2 severe obesity due to excess calories with serious comorbidity and body mass index (BMI) of 38.0 to 38.9 in adult (CMS/HCC) Social History Tobacco Use Types Packs/Day Years [...] Date Recorded Patient Health Questionnaire-2 Score 0 04/29/2023 Comments No Sex and Gender Information Value [...] Description 12/14/2024 2:00 PM EDT Procedure Visit [facility] [address] [place] [address] [facility] [address] [place] [address] documented as of this encounter Visit Diagnoses Diagnosis Class 2 severe obesity due to excess calories with serious comorbidity and body mass index (BMI) of 38.0 to 38.9 in adult (CMS/HCC) documented in this encounter Additional Health Concerns Assessment Noted Time PHQ-9 Depression Total Score: 0 04/29/20 23 2:41 PM EDT documented as of this encounter Care Teams Sign Manufacturer Relationship Specialty Start Date End Date [facility] [address] [place] [address] PCP - General Family Medicine 04/13/22 documented as of this encounter
--- OUTSIDE RECORDS SUMMARY | 2024-10-05 11:26 | XMS_ITS | Encounter Summary ---
Author Organization [employer] Address [address] [facility] 7t [place] [address] Care Team Providers Care Site Superintendent Name Role Phone [place] [facility] Primary Care Provider [phone] Reason for Visit * Reason Onset Date Comments Med Refill 10/26/2023 Encounter Details Date Type Department Care Team (Late st Contact Info) Description 10/26/2023 Refill [facility] [address] [place] [address] [facility] [address] [place] [address] Class 2 severe obesity due to excess [...] Description 12/14/2024 2:00 PM EDT Procedure Visit [facility] [address] [place] [address] [place] [facility] [address] [place] [address] documented as of this encounter Visit Diagnoses Diagnosis Class 2 severe obesity due to excess calories with serious comorbidity and body mass index (BMI) of 38.0 to 38.9 in adult (CMS/HCC) documented in this encounter Additional Health Concerns Assessment Noted Time PHQ-9 Depression Total Score: 0 04/29/20 23 2:41 PM EDT documented as of this encounter Care Teams Site Superintendent Relationship Specialty Start Date End Date [place] [address] [place] [address] PCP - General Family Medicine 04/13/22 documented as of this encounter
--- OUTSIDE RECORDS SUMMARY | 2024-10-05 11:26 | XMS_ITS | Encounter Summary ---
Author Organization [employer] Address [address] [facility] [address] [place] [address] Care Team Providers Care Office Service Coordinator Name Role Phone [place] [facility] Primary Care Provider [phone] Reason for Visit * Reason Onset Date Comments Med Refill 04/21/2023 Encounter Details Date Type Department Care Team (Late st Contact Info) Description 04/21/2023 Refill [facility] MEDICINE [address] [place] [address] [facility] [address] [place] [address] Class 2 severe obesity due to excess calories with serious comorbidity and body mass index (BMI) of 38.0 to 38.9 in adult Social History Tobacco Use Types Packs/Day Years Used Date Smoking Tobacco: Never Smokeless Tobacco: Never Alcohol Use Standard Drinks/Week Comments Never 0 (1 standard drink = 0.6 oz pur e alcohol) Depression Answer Date Recorded Patient Health Questionnaire-9 Score 0 02/16/2023 Housing Stability Answer Date Recorded What is [...] Date Recorded Patient Health Questionnaire-2 Score 0 02/16/2023 Comments Unknown Sex and Gender Information Value [...] Description 12/14/2024 2:00 PM EDT Procedure Visit [facility] MEDICINE [address] [place] [address] AndersonRadha FNP [address] [place] [address] documented as of this encounter Visit Diagnoses Diagnosis Class 2 severe obesity due to excess calories with serious comorbidity and body mass index (BMI) of 38.0 to 38.9 in adult (CMS/HCC) documented in this encounter Additional Health Concerns Assessment Noted Time PHQ-9 Depression Total Score: 0 02/17/20 23 3:36 PM EDT documented as of this encounter Care Teams Office Service Coordinator Relationship Specialty Start Date End Date Radha Moreno FNP [address] [place] [address] PCP - General Family Medicine 04/13/22 documented as of this encounter
--- OUTSIDE RECORDS SUMMARY | 2024-10-05 11:26 | XMS_ITS | Encounter Summary ---
Author Organization [employer] Address [address] [facility] [address] [place] [address] Care Team Providers Care Temperature Logging Operator Name Role Phone [place] [facility] Primary Care Provider [phone] Reason for Visit * Reason Onset Date Comments Med Refill 11/07/2023 Encounter Details Date Type Department Care Team (Late st Contact Info) Description 11/07/2023 Refill [facility] MEDICINE [address] [place] [address] [facility] [address] [place] [address] Social History Tobacco Use Types Packs/Day Years [...] Description 12/14/2024 2:00 PM EDT Procedure Visit [facility] MEDICINE [address] [place] [address] Radha Moreno FNP [address] [place] [address] documented as of this encounter Visit Diagnoses Not on filedocumented in this encounter Additional Health Concerns Assessment Noted Time PHQ-9 Depression Total Score: 0 04/29/20 23 2:41 PM EDT documented as of this encounter Care Teams Temperature Logging Operator Relationship Specialty Start Date End Date Radha Moreno FNP [address] [place] [address] PCP - General Family Medicine 04/13/22 documented as of this encounter
--- OUTSIDE RECORDS SUMMARY | 2024-10-05 11:26 | XMS_ITS | Encounter Summary ---
Author Organization [employer] Address [address] [facility] 7t [place] [address] Care Team Providers Care College Or University Business Manager Name Role Phone [place] [facility] Primary Care Provider [phone] Reason for Visit * Reason Comments Med Refill Encounter Details Date Type Department Care Team (Late st Contact Info) Description 03/14/2023 Refill [facility] MEDICINE [address] [place] [address] [facility] [address] [place] [address] Class 2 severe obesity due to excess calories with serious comorbidity and body mass index (BMI) of 39.0 to 39.9 in adult (CMS/[facility]) Social History Tobacco Use Types Packs/Day Years Used Date Smoking Tobacco: Never Smokeless Tobacco: Never Alcohol Use Standard Drinks/Week Comments Never 0 (1 standard drink = 0.6 oz pur e alcohol) Depression Answer Date Recorded Patient Health Questionnaire-9 Score 0 02/16/2023 Depression Answer Date Recorded Patient Health Questionnaire-2 [...] Encounters Date Type Department Care Team (Late Contact Info) Description 12/14/2024 2:00 PM EDT Procedure Visit [facility] MEDICINE [address] [place] [address] Radha Moreno FNP [address] [place] [address] documented as of this encounter Visit Diagnoses Diagnosis Class 2 severe obesity due to excess calories with serious comorbidity and body mass index (BMI) of 39.0 to 39.9 in adult (CMS/[facility]) documented in this encounter Additional Health Concerns Assessment Noted Time PHQ-9 Depression Total Score: 0 02/17/20 3:36 PM EDT documented as of this encounter Care Teams [employer] Business Manager Relationship Specialty Start Date End Date Josh AUGUSTA Garcia [address] [place] [address] PCP - General Family Medicine 04/13/22 documented as of this encounter
--- OUTSIDE RECORDS SUMMARY | 2024-10-05 11:26 | XMS_ITS | Encounter Summary ---
Author Organization [employer] Address [address] [facility] [address] [place] [address] Care Team Providers Care Learning Center Instructor Name Role Phone [place], [facility] Primary Care Provider [phone] Reason for Visit * Reason Onset Date Comments Error 10/14/2023 Durable Medical Equipment 10/14/2023 Wrist splint Encounter Details Date Type Department Care Team ([facility] st Contact Info) Description 10/14/2023 Telephone [facility] MEDICINE [address] [place] [address] [facility] [facility] [address] [place], [place] [id number] Error; Durable Medical Equipment (Wrist splint) Social History Tobacco Use Types Packs/Day Years [...] encounter Miscellaneous Notes * Telephone Encounter - Mamta Vang - 10/20/2023 4:30 PM EDT ----- Message from [facility], FLOOR SANDER sent at 10/14/2023 1:11 PM EDT ----- Please initate PA for wrist splint for carpal tunnel (left) Thank you! * Telephone Encounter - Mamta Vang - 10/20/2023 3:38 PM EDT Order for Wrist Splints was placed on PCP desk for signature. Once signed will fax to [facility] and scan into chart under media. * Telephone Encounter - Mamta Vang - 10/20/2023 3:37 PM EDT ----- Message from [facility] FLOOR SANDER sent at 10/14/2023 1:11 PM EDT ----- Please initate PA for wrist splint for carpal tunnel (left) Thank you! documented in this encounter Plan of Treatment Upcoming Encounters Date Type Department Care Team (Late st Contact Info) Description 12/14/2024 2:00 PM EDT Procedure Visit [facility] MEDICINE [address] [place] [address] Radha Moreno FNP [address] [place] [address] documented as of this encounter Visit Diagnoses Not on filedocumented in this encounter Additional Health Concerns Assessment Noted Time PHQ-9 Depression Total Score: 0 04/29/20 23 2:41 PM EDT documented as of this encounter Care Teams Learning Center Instructor Relationship Specialty Start Date End Date Radha Moreno FNP [address] [place] [address] PCP - General Family Medicine 04/13/22 documented as of this encounter
== END 2024-10-05 11:05 | disposition home or self-care (01) ==
PROVIDERS: Emergency Provider Emergency Medicine Emergency Medical Services; PCP Registered Nurse
DX: L50.0 Allergic urticaria (principal)
CPT/HCPCS: 96372; 99284; J2919

== ENCOUNTER 2024-11-16 11:04 | Outpatient (REF) | payer MEDICAID, SELFPAY ==
--- OUTSIDE RECORDS SUMMARY | 2024-11-16 11:11 | XMS_ITS | Clinical Summary ---
Author Organization [facility] Address [address] [place] [address] Phone Care Team Providers Care Legal Technician Name Role Phone Glynn Gilbert MD Primary [...] Health Maintenance Due Date Last Done Comments Hepatitis B Vaccine (1 of 3 - 19+ 3-dose series) 1998 Pneumococcal Vaccine: Peds ( 0 to 5 Years) and At-Risk Patients (6 to 49 Years) (1 of 2 - PCV) 1998 Influenza Vaccine (Season Ended) 2025 08/10/2022, 03/31/2022, 05/29/2013, Additional history exists Insurance Medicaid [place] Medicaid [place] Care Teams Legal Technician Relationship Specialty Start Date End Date Glynn Gilbert MD PCP - General 07/07/20
== END 2024-11-16 11:05 | disposition home or self-care (01) ==
LOC: HO.MAMMO 11:04
PROVIDERS: PCP Registered Nurse; Visit Provider Registered Nurse
DX: Z13.89 Encounter for screening for other disorder (principal)

== ENCOUNTER 2025-01-24 13:44 | Outpatient (REF) | payer MEDICAID, SELFPAY ==
--- OUTSIDE RECORDS SUMMARY | 2025-01-24 13:58 | XMS_ITS | Encounter Summary ---
Author Organization [employer] Address [address] [facility] 7 [place] [address] Care Team Providers Care Commissioner Of Officials Name Role Phone [facility] Primary Care Provider [phone] Reason for Visit * Reason Onset Date Comments Med Refill 10/08/2024 Encounter Details Date Type Department Care Team (Late st Contact Info) Description 10/08/2024 Refill [facility] MEDICINE [address] [place] [address] [facility] [address] [place] [address] Social History Tobacco Use Types Packs/Day Years [...] your housing situation today? I have wyatt anamaria 09/12/[address] you li [...] as of this encounter Plan of Treatment Not on file documented as of this encounter Visit Diagnoses Not on filedocumented in this encounter Additional Health Concerns Assessment Noted Time PHQ-9 Depression Total Score: 0 09/22/19 25 1:12 PM EDT documented as of this encounter Care Teams Commissioner Of Officials Relationship Specialty Start Date End Date Radha Moreno FNP [address] [place] [id number] PCP - General Family Medicine 04/13/22 documented as of this encounter
--- OUTSIDE RECORDS SUMMARY | 2025-01-24 13:58 | XMS_ITS | Clinical Summary ---
Author Organization [facility] Address [address] [place] [address] Phone Care Team Providers Care Integrated Logistics Support Manager Name Role Phone Glynn Gilbert MD Primary [...] of 2 - PCV) 1998 Influenza Vaccine (#1) 2025 3, 03/31/2022, 05/29/2013, Additional history exists Insurance [place] Care Teams Integrated Logistics Support Manager Relationship Specialty Start Date End Date Glynn Gilbert MD PCP - General 07/07/20
== END 2025-01-24 13:45 | disposition home or self-care (01) ==
LOC: HO.MAMMO 13:44
PROVIDERS: PCP Registered Nurse; Visit Provider Advanced Practice Midwife
DX: Z12.31 Encounter for screening mammogram for malignant neoplasm of breast (principal)
CPT/HCPCS: 77063; 77067

== ENCOUNTER → 2025-01-24 14:00 | Outpatient (BNV) | payer MEDICAID, SELFPAY | PROVIDERS: PCP Registered Nurse; Visit Provider Internal Medicine | DX: Z12.31 Encounter for screening mammogram for malignant neoplasm of breast (principal) | CPT/HCPCS: 77063; 77067 ==